=== PATIENT | female | born 2000 | race Hispanic/Latino ===

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

== ENCOUNTER 2024-12-08 12:08 | Emergency (ER) | payer BC ==
--- OUTSIDE RECORDS SUMMARY | 2024-12-08 12:13 | XMS REPORT | Continuity of Care Document ---
Author Name Unknown Address [address] [facility] [address] [place] [address] Organization [facility] Address [address] [facility] [address] [place] [address] Care Team Providers Care Psych Nurse Name Role Phone Pcp, Patient Does Not Have A Primary Care Physic chico Emili Tellez Attending Clinician Unavailab Araceli rOtega Attending Clinician Unavailable EAN WORKMAN Attending Clinician Unavaila Ean Ozuna Attending Clinician [phone]- [phone] KASSY VERDE Attending Clinician Unavailable DONIS BELTRÁN Attending Clinician Unavailable Doctor Unassigned, [place] Attending Clinician U THA Johnson Attending Clinician Unavaila THA Jolly Attending Clinician Unavaila RASHEEDA Gruber Attending Clinician Unavailable EbhiRasheeda Muñoz Attending Clinician [phone] Unknown, Attending Attending Clinician Unavailab JANICE Koenig Attending Clinician Unavailable Lab, Ang - Db Attending Clinician Unavailable Janice Blunt PA-C Attending Clinician [phone] UNKNOWN, ATTENDING Attending Clinician UnavailMARI Castro Attending Clinician Unavailable Mari Abbott MD Attending Clinician [phone] Araceli Up Admitting Clinician Unavailable Payers Payer Name Policy Type Policy Number Effective Date Expirati on Date Source [facility] - OUT [facility] STATE [id number] 2021 00:00:00 Problems Condition Name Condition Details Condition Category Status Onset Date Resolution Date Last Treatment Date Treating Clinician Comments Source Nexplanon in place Nexplanon in place Disease Active 12-07 00:00: 00 [facility] 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 Active 03-11 00:00: 00 [facility] Allergies, Adverse Reactions, Alerts Allergy Name Allergy Type Status Severity Reaction(s) Onset Date Inactive Date Treating Clinician Comments Source No Known Allergie s DA Active U 01-31 00:00: 00 [facility] No Known Allergie s DA Active U 01-28 00:00: 00 [facility] No Known Allergie s DA Active U 01-20 00:00: 00 [facility] No Known Allergie s DA Active U 12-06 00:00: 00 [facility] NO KNOWN ALLERGIE S Drug Class Active [facility] Social History Social Habit Start Date Stop Date Quantity Comments Source History SDOH Alcohol Comment Glidden o f [facility] Alcohol intake 2023-11-09 00:00:00 2023-11-09 00:00:00 Lifetime non-drinker (finding) [facility] Tobacco use and exposure 2023-02-24 00:00:00 2023-02-24 00:00:00 Smokeless tobacco non-user [facility] Exposure to SARS-CoV-2 (event) 2021-11-27 00:00:00 2021-12-07 13:58:00 Not sure [facility] History of Social function 2021-12-07 00:00:00 2021-12-07 00:00:00 [facility] History SDOH Alcohol Frequency 2020-08-28 00:00:00 2020-08-28 00:00:00 1 [facility] History SDOH Alcohol Std Drinks 2020-08-28 00:00:00 2020-08-28 00:00:00 99 [facility] History SDOH Alcohol Binge 2020-08-28 00:00:00 2020-08-28 00:00:00 1 [facility] Sex Assigned At 2000 00:00:00 2000 00:00:00 [facility] Smoking Status Start Date Stop Date Source Never smoked tobacco [facility] Medications Ordered Medication Name Filled Medication Name Start Date Stop Date Current Medication? Ordering Clinician Indication Dosage Frequency Signature (SIG) Comments Components Source nirmatrelvi r-ritonavir (PAXLOVID) 300 mg (150 mg x 2)-100 mg tablet 04-12 00:00: 00 Yes [id number] 3{tbl} Take 3 tablets by mouth in the morning and 3 tablets in the evening. [facility] etonogestre l (NEXPLANON) 68 mg implant 02-24 10:08: 36 02-24 00:00 :00 No 68mg 68 mg by Subdermal route once now. [facility] etonogestre l (NEXPLANON) 68 mg implant 08-28 13:18: 20 Yes 68mg 68 mg by Subdermal route once now. [facility] metformin ER 500 mg 24 hr tablet 2016-07 030 00:00: 00 02-24 00:00 :00 No 500mg Take 1 tablet by mouth daily with breakfast. [facility] Vital Signs Vital Name Observation Time Observation Value Comments S analyheriberto Heart rate 2023-11-10 02:15:00 96 /min [facility] Systolic blood pressure 2023-11-10 02:00:00 119 mm[Hg] [facility] Diastolic blood pressure 2023-11-10 02:00:00 75 mm[Hg] [facility] Body temperature 2023-11-10 02:00:00 36.83 Susan [facility] Respiratory rate 2023-11-10 02:00:00 17 /min [facility] Oxygen saturation in Arterial blood by Pulse oximetry 2023-11-10 02:00:00 99 /min [facility] Body height 2023-11-10 01:25:00 149.9 cm [facility] Body weight 2023-11-10 01:25:00 87.091 kg [facility] BMI 2023-11-10 01:25:00 38.78 kg/m2 [facility] Systolic blood pressure 2023-05-03 16:25:00 105 mm[Hg] [facility] Diastolic blood pressure 2023-05-03 16:25:00 68 mm[Hg] [facility] Heart rate 2023-05-03 16:24:00 76 /[facility] Body temperature 2023-05-03 16:24:00 36.78 Susan [facility] Body height 2023-05-03 16:24:00 149.9 cm [facility] Body weight 2023-05-03 16:24:00 77.52 kg [facility] BMI 2023-05-03 16:24:00 34.52 kg/m2 [facility] Systolic blood pressure 2023-04-12 14:23:00 113 mm[Hg] [facility] Diastolic blood pressure 2023-04-12 14:23:00 83 mm[Hg] [facility] Heart rate 2023-04-12 14:23:00 95 /min [facility] Body temperature 2023-04-12 14:23:00 36.83 Susan [facility] Respiratory rate 2023-04-12 14:23:00 18 /min [facility] Body height 2023-04-12 14:23:00 149.9 cm [facility] Body weight 2023-04-12 14:23:00 76.34 kg [facility] BMI 2023-04-12 14:23:00 33.99 kg/m2 [facility] Oxygen saturation in Arterial blood by Pulse oximetry 2023-04-12 14:23:00 98 /min [facility] Systolic blood pressure 2023-02-24 15:06:00 116 mm[Hg] [facility] Diastolic blood pressure 2023-02-24 15:06:00 81 mm[Hg] [facility] Heart rate 2023-02-24 15:06:00 81 /min [facility] Body temperature 2023-02-24 15:06:00 36.94 Susan [facility] Respiratory rate 2023-02-24 15:06:00 14 /min [facility] Body weight 2023-02-24 15:06:00 77.111 kg [facility] BMI 2023-02-24 15:06:00 34.34 kg/m2 [facility] Oxygen saturation in Arterial blood by Pulse oximetry 2023-02-24 15:06:00 100 /min [facility] Systolic blood pressure 2021-12-07 19:33:00 113 mm[Hg] [facility] Diastolic blood pressure 2021-12-07 19:33:00 74 mm[Hg] [facility] Heart rate 2021-12-07 19:33:00 88 /min [facility] Respiratory rate 2021-12-07 19:33:00 18 /min [facility] Body height 2021-12-07 19:33:00 149.9 cm [facility] Body weight 2021-12-07 19:33:00 71.243 kg [facility] BMI 2021-12-07 19:33:00 31.72 kg/m2 [facility] Oxygen saturation in Arterial blood by Pulse oximetry 2021-12-07 19:33:00 99 /min [facility] Procedures Procedure Date / Time Performed Performing Clinician Source [id number] 2024-02-09 00:00:00 [facility] [id number] 2024-02-09 00:00:00 [facility] [id number] 2024-02-09 00:00:00 [facility] [id number] 2024-02-09 00:00:00 [facility] EKG-12 LEAD 2023-11-10 02:34:29 Ean Workman [facility] TROPONIN I 2023-11-10 01:27:00 Ean Workman [facility] COMP. METABOLIC PANEL ([id number]) 2023-11-10 01:27:00 Juan [facility] CBC WITH DIFF 2023-11-10 01:27:00 Juan [facility] POCT SARS-COV-2 ANTIGEN (BINAX NOW) 2023-04-12 14:41:00 Janice Blunt [facility] POCT MOLECULAR STREP 2023-04-12 14:32:00 Unknown, Atte patrice [facility] POCT TEST 2023-02-24 15:08:00 Ky Blunt [facility] ASSIGNMENT OF BENEFITS 2023-02-24 14:51:53 Docto r Unassigned, [place] [facility] Encounters Start Date/Time End Date/Time Encounter Type Admission Type Attending [facility] Care Facility Care Department Encounter ID Source 2024-02-14 05:07:00 2024-02-14 15:05:00 Emergency EM [facility]elle[facility] [id number] [facility] 2024-02-08 23:47:00 2024-02-11 16:06:00 Inpatient Araceli Robles [facility] OBPP [id number] [facility] 2024-02-01 22:27:00 2024-02-01 23:50:00 Emergency EM Araceli Up [facility] MANJIT [id number] [facility] 2024-01-29 23:27:00 2024-01-30 00:46:00 Emergency EM Araceli Up [facility] [id number] [facility] 2024-01-21 08:15:00 2024-01-21 12:55:00 Emergency EM Araceli Up [facility] [id number] [facility] 2023-12-20 12:33:00 2023-12-20 12:33:00 Outpatient Araceli Robles [facility] [id number] [facility] 2023-12-07 14:20:00 2023-12-07 16:50:00 Emergency Araceli Hodges [facility]IT [id number] [facility] 2023-11-09 20:20:00 2023-11-09 22:15:00 Emergency X [facility] [id number] [facility] 2023-11-09 20:20:00 2023-11-09 22:15:00 Emergency Juan Ean [facility] [id number] 350.1.13.10 4.2.7.2.686 [id number] [facility] 2023-07-05 14:00:00 2023-07-05 14:00:00 Outpatient R KASSY VERDE [facility] [id number] [facility] 2023-06-28 09:00:00 2023-06-28 09:00:00 Outpatient R DONIS BELTRÁN [facility] [id number] [facility] 2023-05-13 00:00:00 2023-05-13 00:00:00 Patient Secure Msg Doctor Unassigned, [place] [facility] .840.114 350.1.13.10 4.2.7.2.686 [id number] [facility] 2023-05-03 11:30:00 2023-05-03 11:38:43 Outpatient R THA GONZALEZ CHERYAL [facility] [id number] [facility] 2023-05-03 11:30:00 2023-05-03 11:38:43 Office Visit Tha Gonzalez [facility] .840.114 350.1.13.10 4.2.7.2.686 [id number] [facility] 2023-04-12 09:20:00 2023-04-12 09:50:02 Outpatient R RASHEEDA ALVARADO [facility] [id number] [facility] 2023-04-12 09:20:00 2023-04-12 09:40:00 Urgent Care Juan RamonRasheeda cervantes Unknown, Attending [facility] [id number] 350.1.13.10 4.2.7.2.686 [id number] [facility] 2023-04-05 10:30:00 2023-04-05 10:30:00 Outpatient R THA GONZALEZ CHERYAL [facility] [id number] [facility] 2023-03-14 00:00:00 2023-03-14 00:00:00 Outpatient JANICE SABILLON [facility] [id number] [facility] 2023-02-27 00:00:00 2023-02-27 00:00:00 Patient Secure Msg Doctor Unassigned, [place] [facility] 1..840.114 350.1.13.10 4.2.7.2.686 [id number] [facility] 2023-02-24 10:45:00 2023-02-24 10:45:00 Save All [facility] 1.2.840.114 350.1.13.10 4.2.7.2.686 [id number] [facility] 2023-02-24 10:00:00 2023-02-24 10:26:05 Outpatient JANICE SABILLON [facility] [id number] [facility] 2023-02-24 10:00:00 2023-02-24 10:26:05 Urgent Care Janice Blunt Unknown, Attending [facility] [id number] 350.1.13.10 4.2.7.2.686 [id number] [facility] 2023-02-24 09:45:00 2023-02-24 09:45:00 Outpatient R UNKNOWN, ATTENDING [facility] [id number] [facility] 2023-02-24 00:00:00 2023-02-24 00:00:00 Orders Only Doctor Unassigned, [place] [facility] 1.840.114 350.1.13.10 4.2.7.2.686 [id number] [facility] 2022-12-20 10:00:00 2022-12-20 10:00:00 Outpatient R THA GONZALEZ CHERYAL [facility] [id number] [facility] 2021-12-28 15:15:00 2021-12-28 15:15:00 Outpatient R SCARGALLON [facility] [id number] [facility] 2021-12-21 00:00:00 2021-12-21 00:00:00 Telephone Scar Mari [facility] 1.2840.114 350.1.13.10 4.2.7.2.686 [id number] [facility] 2021-12-07 14:00:00 2021-12-07 14:55:37 Office Visit Mari Abbott [facility] [id number] 350.1.13.10 4.2.7.2.686 [id number] [facility] 2021-12-07 14:00:00 2021-12-07 14:55:37 Outpatient R GALLO ABBOTTN [facility] [id number] [facility] 2021-12-07 14:00:00 2021-12-07 14:00:00 Outpatient MARI MARIA [facility] [id number] [facility] 2021-08-31 14:00:00 2021-08-31 14:00:00 Outpatient MARI MARIA [facility] [id number] [facility] 2020-08-28 13:00:00 2020-08-28 13:00:00 Outpatient MARI MARIA [facility] [id number] [facility] 2020-08-28 00:00:00 2020-08-28 00:00:00 Orders Only Doctor Unassigned, [place] [facility] [id number] 350.1.13.10 4.2.7.2.686 [id number] [facility] Results Test Description Test Time Test Comments Results Result Co mments Source COMPREHENSIVE METABOLIC [id number] 06:28:00* Test Item Value Reference Range Interpretation Comme nts SODIUM (test code = NA) 139 mEq/L 136-145 N POTASSIUM (test code = K) 4.7 mEQ/L 3.4-4.5 H Please note new normal range as of November 2023 CHLORIDE (test code = CL) 110 mEq/L 98-107 H Please note new normal range as of November 2023 CARBON DIOXIDE (test code = CO2) 25 mEq/L 22-31 N ANION GAP (test code = GAP) 8.7 10-20 L GLUCOSE (test code = GLU) 81 mg/dL 74-106 N Please note new normal range as of November 2023 BLOOD UREA NITROGEN (test code = BUN) 8 mg/dL 8-23 N Please note ne w normal range as of November 2023 CREATININE (test code = CREAT) 0.6 mg/dL 0.55-1.02 N Please note new normal range as of November 2023 TOTAL PROTEIN (test code = PROT) 5.7 g/dL 5.7-8.2 N Please note new normal range as of November 2023 ALBUMIN (test code = ALB) 3.2 g/dL 3.2-4.8 N Please note new normal range as of November 2023 CALCIUM (test code = CA) 7.9 mg/dL 8.3-10.6 L Please note new normal range as of November 2023 BILIRUBIN TOTAL (test code = BILT) 0.2 mg/dL 0.3-1.2 L Please note n ew normal range as of November 2023 SGOT/AST (test code = AST) 39 units/L < 34 H SGPT/ALT (test code = ALT) 59 units/L 10-49 H ALKALINE PHOSPHATASE TOTAL (test code = ALKP) 152 units/L 46-116 H Please note n ew normal range as of November 2023 GLOMERULAR FILTRATION RATE (test code = GFR) 129.27 ml/min >60 N The Glomerular Filtration Rate is a calculated parameterbased on serum Creatinine, patient age and sex. GFR valuesless than 60 mL/min/1.73 square meters are indicative ofChronic Kidney Disease. Values less than 15 mL/min/1.73square meters indicate Kidney failure. The calculation forGFR is based on the CKD-EPI (2020) calculation. This formulais race indifferent and is the recommended formula for GFRby the National Kidney Foundation for Adults.The GFR will not calculate if the sex is unknown or if thepatient's age is <18 years. [id number] 06:28:00* Test Item Value Reference Range Interpretation Comme nts LIPASE (test code = LIP) 36 units/L 12-53 N Please note new normal range as of November 2023 CBC W/O [id number] 06:17:00* Test Item Value Reference Range Interpretation Comme nts WHITE BLOOD CELL (test code = WBC) 8.9 K/mm3 6.5-12.3 Results verified by repeat analysis RED BLOOD CELL (test code = RBC) 2.34 M/mm3 3.51-4.69 L HEMOGLOBIN (test code = HGB) 6.4 g/dL 10.1-13.8 LL RESULTS CALLED Zohreh ORTEGA RNREAD BACK & CONFIRMED? YESBY [id number] 02/14/24 0615Results verified by repeat analysis HEMATOCRIT (test code = HCT) 20.2 % 32.5-41.8 L MEAN CELL VOLUME (test code = MCV) 86.3 fL 84.6-96.6 N MEAN CELL HGB (test code = MCH) 27.4 pg 27.3-33.9 N MEAN CELL HGB CONCETRATION (test code = MCHC) 31.7 gm/dL 32.0-34.2 L RED CELL DISTRIBUTION WIDTH (test code = RDW) 15.9 % 12.2-16.3 N PLATELET COUNT (test code = PLT) 328 K/mm3 134-363 N MEAN PLATELET VOLUME (test code = MPV) 9.6 fL 9.2-12.7 N UA RFLX MICR CULT IF [id number] 05:38:00* Test Item Value Reference Range Interpretation Comme nts UA COLOR (test code = COLU) RED YELLOW UA APPEARANCE (test code = APPU) CLOUDY CLEAR A UA GLUCOSE DIPSTICK (test code = DGLUU) NEGATIVE NEGATIVE UA BILIRUBIN DIPSTICK (test code = BILU) NEGATIVE NEGATIVE UA KETONE DIPSTICK (test code = KETU) NEGATIVE NEGATIVE UA SPECIFIC GRAVITY (test code = SGU) 1.015 1.001-1.035 N UA BLOOD DIPSTICK (test code = JENNIFER) 3+ NEGATIVE A UA PH DIPSTICK (test code = KIMBERLY) 7.0 5-9 UA PROTEIN DIPSTICK (test code = PROU) 2+ NEGATIVE UA UROBILINIOGEN DIPSTICK (test code = URO) 0.2 EU/dL <=1.0 UA NITRITE DIPSTICK (test code = ALEJANDRA) NEGATIVE NEGATIVE UA LEUKOCYTE ESTERASE DIPSTICK (test code = LEUU) 3+ NEGATIVE A UA WBC (test code = WBCU) TOO NUMEROUS T O CNT #/hpf NONE SEEN A UA EPITHELIAL CELLS (test code = EPIU) FEW #/HPF RARE-FEW UA RBC (test code = RBCU) TOO NUMEROUS T O CNT #/hpf NONE SEEN A UA BACTERIA (test code = BACU) FEW /HPF RARE-FEW Indication for culture: Dysuria/FrequencySpecimen Description: CLEAN CATCH COMPREHENSIVE METABOLIC [id number] 09:11:00* Test Item Value Reference Range Interpretation Comme nts SODIUM (test code = NA) 139 mEq/L 136-145 N POTASSIUM (test code = K) 4.4 mEQ/L 3.4-4.5 N Please note new normal range as of November 2023 CHLORIDE (test code = CL) 112 mEq/L 98-107 H Please note new normal range as of November 2023 CARBON DIOXIDE (test code = CO2) 22 mEq/L 22-31 N ANION GAP (test code = GAP) 9.4 10-20 L GLUCOSE (test code = GLU) 91 mg/dL 74-106 N Please note new normal range as of November 2023 BLOOD UREA NITROGEN (test code = BUN) 7 mg/dL 8-23 L Please note ne w normal range as of November 2023 GLOMERULAR FILTRATION RATE (test code = GFR) 124.55 ml/min >60 N The Glomerular Filtration Rate is a calculated parameterbased on serum Creatinine, patient age and sex. GFR valuesless than 60 mL/min/1.73 square meters are indicative ofChronic Kidney Disease. Values less than 15 mL/min/1.73square meters indicate Kidney failure. The calculation forGFR is based on the CKD-EPI (2020) calculation. This formulais race indifferent and is the recommended formula for GFRby the National Kidney Foundation for Adults.The GFR will not calculate if the sex is unknown or if thepatient's age is <18 years. CREATININE (test code = CREAT) 0.7 mg/dL 0.55-1.02 N Please note new normal range as of November 2023 TOTAL PROTEIN (test code = PROT) 5.5 g/dL 5.7-8.2 L Please note new normal range as of November 2023 ALBUMIN (test code = ALB) 3.0 g/dL 3.2-4.8 L Please note new normal range as of November 2023 CALCIUM (test code = CA) 8.5 mg/dL 8.3-10.6 N Please note new normal range as of November 2023 BILIRUBIN TOTAL (test code = BILT) 0.3 mg/dL 0.3-1.2 N Please note n ew normal range as of November 2023 SGOT/AST (test code = AST) 33 units/L < 34 SGPT/ALT (test code = ALT) 48 units/L 10-49 N ALKALINE PHOSPHATASE TOTAL (test code = ALKP) 199 units/L 46-116 H Please note n ew normal range as of November 2023 CBC W/AUTO [id number] 08:32:00* Test Item Value Reference Range Interpretation Comme nts WHITE BLOOD CELL (test code = WBC) 18.1 K/mm3 6.5-12.3 H Results verifi ed by repeat analysisRESULTS VERIFIED BY REPEAT ANALYSIS RED BLOOD CELL (test code = RBC) 2.83 M/mm3 3.51-4.69 L HEMOGLOBIN (test code = HGB) 7.6 g/dL 10.1-13.8 L HEMATOCRIT (test code = HCT) 24.1 % 32.5-41.8 L MEAN CELL VOLUME (test code = MCV) 85.2 fL 84.6-96.6 N MEAN CELL HGB (test code = MCH) 26.9 pg 27.3-33.9 L MEAN CELL HGB CONCETRATION (test code = MCHC) 31.5 gm/dL 32.0-34.2 L RED CELL DISTRIBUTION WIDTH (test code = RDW) 14.8 % 12.2-16.3 N PLATELET COUNT (test code = PLT) 311 K/mm3 134-363 N IMMATURE PLATELET FRACTION (test code = IPF) 2.3 % 0.0-10.8 N MEAN PLATELET VOLUME (test code = MPV) 11.1 fL 9.2-12.7 N NEUTROPHIL % (test code = NT%) 82.9 % 57.9-77.3 H LYMPHOCYTE % (test code = LY%) 11.1 % 14.5-29.7 L MONOCYTE % (test code = MO%) 4.8 % 3.6-10.2 N EOSINOPHIL % (test code = EO%) 0.4 % 0.0-3.0 N BASOPHIL % (test code = BA%) 0.2 % 0.1-0.9 N NEUTROPHIL # (test code = NT#) 15.0 K/mm3 LYMPHOCYTE # (test code = LY#) 2.0 K/mm3 MONOCYTE # (test code = MO#) 0.9 K/mm3 EOSINOPHIL # (test code = EO#) 0.07 K/mm3 BASOPHIL # (test code = BA#) 0.0 K/mm3 RBC MORPHOLOGY REQUIRED (test code = RBCM) NORMAL NORMAL PLATELET MORPHOLOGY REQUIRED (test code = PLTMR) NORMAL NORMAL COMPREHENSIVE METABOLIC [id number] 10:25:00* Test Item Value Reference Range Interpretation Comme nts SODIUM (test code = NA) 136 mEq/L 136-145 N POTASSIUM (test code = K) 4.2 mEQ/L 3.4-4.5 N Please note new normal range as of November 2023 CHLORIDE (test code = CL) 111 mEq/L 98-107 H Please note new normal range as of November 2023 CARBON DIOXIDE (test code = CO2) 19 mEq/L 22-31 L ANION GAP (test code = GAP) 10.2 10-20 N GLUCOSE (test code = GLU) 130 mg/dL 74-106 H Please note new normal range as of November 2023 BLOOD UREA NITROGEN (test code = BUN) 10 mg/dL 8-23 N Please note ne w normal range as of November 2023 CREATININE (test code = CREAT) 0.9 mg/dL 0.55-1.02 N Please note new normal range as of November 2023 TOTAL PROTEIN (test code = PROT) 4.8 g/dL 5.7-8.2 L Please note new normal range as of November 2023 ALBUMIN (test code = ALB) 2.7 g/dL 3.2-4.8 L Please note new normal range as of November 2023 CALCIUM (test code = CA) 8.2 mg/dL 8.3-10.6 L Please note new normal range as of November 2023 BILIRUBIN TOTAL (test code = BILT) 0.4 mg/dL 0.3-1.2 N Please note n ew normal range as of November 2023 SGOT/AST (test code = AST) 51 units/L < 34 H SGPT/ALT (test code = ALT) 69 units/L 10-49 H ALKALINE PHOSPHATASE TOTAL (test code = ALKP) 194 units/L 46-116 H Please note n ew normal range as of November 2023 GLOMERULAR FILTRATION RATE (test code = GFR) 92.12 ml/min >60 N The Glomerular Filtration Rate is a calculated parameterbased on serum Creatinine, patient age and sex. GFR valuesless than 60 mL/min/1.73 square meters are indicative ofChronic Kidney Disease. Values less than 15 mL/min/1.73square meters indicate Kidney failure. The calculation forGFR is based on the CKD-EPI (2020) calculation. This formulais race indifferent and is the recommended formula for GFRby the National Kidney Foundation for Adults.The GFR will not calculate if the sex is unknown or if thepatient's age is <18 years. CBC W/AUTO [id number] 09:21:00* Test Item Value Reference Range Interpretation Comme nts WHITE BLOOD CELL (test code = WBC) 19.5 K/mm3 6.5-12.3 H Results verified by repeat analysis RED BLOOD CELL (test code = RBC) 2.67 M/mm3 3.51-4.69 L HEMOGLOBIN (test code = HGB) 7.1 g/dL 10.1-13.8 L Results verified by repeat analysis HEMATOCRIT (test code = HCT) 22.0 % 32.5-41.8 L Results verified by repeat analysis MEAN CELL VOLUME (test code = MCV) 82.4 fL 84.6-96.6 L MEAN CELL HGB (test code = MCH) 26.6 pg 27.3-33.9 L MEAN CELL HGB CONCETRATION (test code = MCHC) 32.3 gm/dL 32.0-34.2 N RED CELL DISTRIBUTION WIDTH (test code = RDW) 14.4 % 12.2-16.3 N PLATELET COUNT (test code = PLT) 241 K/mm3 134-363 N MEAN PLATELET VOLUME (test code = MPV) 10.3 fL 9.2-12.7 N NEUTROPHIL % (test code = NT%) 84.9 % 57.9-77.3 H LYMPHOCYTE % (test code = LY%) 7.6 % 14.5-29.7 L MONOCYTE % (test code = MO%) 6.5 % 3.6-10.2 N EOSINOPHIL % (test code = EO%) 0.0 % 0.0-3.0 N BASOPHIL % (test code = BA%) 0.2 % 0.1-0.9 N NEUTROPHIL # (test code = NT#) 16.5 K/mm3 LYMPHOCYTE # (test code = LY#) 1.5 K/mm3 MONOCYTE # (test code = MO#) 1.3 K/mm3 EOSINOPHIL # (test code = EO#) 0 K/mm3 BASOPHIL # (test code = BA#) 0.0 K/mm3 [id number] 20:26:00* Test Item Value Reference Range Interpretation Comme nts GLUBED (test code = GLUBED) 96 mg/dL 65-110 N [id number] 18:25:00* Test Item Value Reference Range Interpretation Comme nts GLUBED (test code = GLUBED) 68 mg/dL 65-110 N [id number] 14:00:00* Test Item Value Reference Range Interpretation Comme nts GLUBED (test code = GLUBED) 72 mg/dL 65-110 N [id number] 08:54:00* Test Item Value Reference Range Interpretation Comme nts GLUBED (test code = GLUBED) 78 mg/dL 65-110 N AG HEPATITIS B [id number] 04:58:00* Test Item Value Reference Range Interpretation Comme nts AG HEPATITIS B SURFACE (test code = HBSAG) NONREACTIVE NONREACTIVE AB HEPATITIS C [id number] 04:58:00* Test Item Value Reference Range Interpretation Comme nts AB HEPATITIS C (test code = HCVAB) NONREACTIVE NONREACTIVE SIGNAL TO CUTOFF (test code = CUTOFF) <0.02 <0.80 N AB [id number] 04:58:00* Test Item Value Reference Range Interpretation Comme nts AB TREPONEMA (test code = TREPAB) NONREACTIVE NONREACTIVE AB HIV 1 04:58:00* Test Item Value Reference Range Interpretation Comme nts AB HIV 1 2 (test code = DBC27YU) NONREACTIVE NONREACTIVE Done by [employer] HIV Ag/Ab Combo Screen [id number] 03:36:00* Test Item Value Reference Range Interpretation Comme nts GLUCOSE (test code = GLU) 80 mg/dL 74-106 N Please note new normal range as of November 2023 CBC W/AUTO [id number] 02:34:00* Test Item Value Reference Range Interpretation Comme nts WHITE BLOOD CELL (test code = WBC) 8.6 K/mm3 6.5-12.3 N RED BLOOD CELL (test code = RBC) 3.62 M/mm3 3.51-4.69 N HEMOGLOBIN (test code = HGB) 9.7 g/dL 10.1-13.8 L HEMATOCRIT (test code = HCT) 30.1 % 32.5-41.8 L MEAN CELL VOLUME (test code = MCV) 83.1 fL 84.6-96.6 L MEAN CELL HGB (test code = MCH) 26.8 pg 27.3-33.9 L MEAN CELL HGB CONCETRATION ( test code = MCHC) 32.2 gm/dL 32.0-34.2 N RED CELL DISTRIBUTION WIDTH (test code = RDW) 13.8 % 12.2-16.3 N PLATELET COUNT (test code = PLT) 330 K/mm3 134-363 N MEAN PLATELET VOLUME (test c ode = MPV) 10.6 fL 9.2-12.7 N NEUTROPHIL % (test code = NT%) 69.8 % 57.9-77.3 N LYMPHOCYTE % (test code = LY%) 23.3 % 14.5-29.7 N MONOCYTE % (test code = MO%) 6.0 % 3.6-10.2 N EOSINOPHIL % (test code = EO%) 0.3 % 0.0-3.0 N BASOPHIL % (test code = BA%) 0.3 % 0.1-0.9 N NEUTROPHIL # (test code = NT#) 6.0 K/mm3 LYMPHOCYTE # (test code = LY#) 2.0 K/mm3 MONOCYTE # (test code = MO#) 0.5 K/mm3 EOSINOPHIL # (test code = EO#) 0.03 K/mm3 BASOPHIL # (test code = BA#) 0.0 K/mm3 - US FET BIO PH MO W/O [id number] 23:53:00 [facility] [place] [facility] KAUFMANName: ISAÍAS MELISSA : 2000 Sex: FPatient Name: ISAÍAS MELISSA Unit No: [id number] EXAMS: CPT CODE: [id number] US FET BIO PH MO W/O NST 30189 BIOPHYSICAL PROFILE: CLINICAL HISTORY: Decreased movement TECHNIQUE: Real-time transabdominal OB ultrasound with image documentation. PRESENTATION: Cephalic PLACENTA: Anterior, grade 2CERVICAL LENGTH: Not visualized. HR: 154 BPM ARMAAN: 10.9 cm GRADING: BREATHIN MOTION:2 TONE: 2 AMNIOTIC FLUID: 2 TOTAL: 8/8 at 2353 Reported and signed by: Estuardo Bullard MD CC: Araceli Up MD; Linda Corrales MD Technologist: Carly Coffman RDMS Probe: Trnscrbd D/ (3983) [email or web address] Orig Print D/T: S: 02/01/2024 (5450) [facility] NAME: ISAÍAS MELISSA Radiology Department PHYS: Linda Mccracken MD [address] : 2000 AGE: 23 SEX: F [place] [address] LOC: F.MANJIT PHONE #: [phone] EXAM DATE: 02/01/2024 STATUS: REG ER FAX #: [phone] RAD NO: Page 1 Signed Report Patient Name: ISAÍAS MELISSA Unit No: [id number] EXAMS: CPT CODE: [id number] US FET BIO PH MO W/O NST 91429 (Continued) [facility] NAME: ISAÍAS MELISSA Radiology Department PHYS: Linda Mccracken MD [address] : 2000 AGE: 23SEX: F [place] [address] LOC: F.MANJIT PHONE #: [phone] EXAM DATE: 01/31 STATUS: REG ER FAX #: [phone] RAD NO: Page 2 Signed Report- US [id number] 00:51:00 [facility] : 2000 Sex: FPatient Name: ISAÍAS MELISSA Unit No: [id number] EXAMS: CPT CODE: [id number] [place] L[place] [address]346 EXAM: US PELVIS OBSTETRIC LIMITED DATE: 01/30/2024 11:52 PM INDICATION: LOF, NEED ARMAAN COMPARISON: None FINDINGS: Uterus: Single intrauterine Lower uterine segment/cervix: Normal with a cervical length of 3 cm Placenta location: Anterior. No evidence for placenta previa or placenta abruption Amniotic fluid volume: Appropriate with ARMAAN = 12 cm position: Cephalic. heart rate: 163 beats per minute Estimated gestational age (US): 35 weeks 4 days SHEELA: 02/29/2024 IMPRESSION: Viable single intrauterine as detailed above. This examination does not include a complete evaluation. If a evaluation is clinically indicated, and complete OB ultrasound exam is recommended on an elective basis. at 0051 Reported and signed by: Jossue Reed M.D. CC: Araceli Up MD; Hao Barahona MD Technologist: Tiff Francisco RDMS Probe: Trnscrbd D/ (005) [email or web address] Orig Print D/T: S: 01/30/2024 (005) [facility] NAME: ISAÍAS MELISSA Radiology Department PHYS: MYLA.Hao Mccormick [address] : 2000 AGE: 23 SEX: F [place], [place] [address] LOC: JordyMANJIT PHONE #: [phone] EXAM DATE: 01/30/2024 STATUS: REG ER FAX #: [phone] RAD NO: Page 1 Signed Report Patient Name: ISAÍAS MELISSA Unit No: [id number] EXAMS: CPT CODE: [id number] [place] L[place] [address]80 (Continued) [facility] NAME: ISAÍAS MELISSA Radiology Department PHYS: Hao Cabrera [address] : 2000AGE: 23 SEX: F [place], [place] [address] LOC: JordyMANJIT PHONE #: [phone] EXAM DATE: 01/30/2024 STATUS: REG ER FAX #: [phone] RAD NO: Page 2 Signed Report- US ABDOMEN [id number] 10:59:00 [facility] : 2000 Sex: FPatient Name: ISAÍAS MELISSA Unit No: [id number] EXAMS: CPT CODE: [id number] US ABDOMEN LTD 36106TNQV: US ABDOMEN LIMITED DATE: 01/21/2024 9:07 AM INDICATION: Epigastric pain, nausea, rule out gallstones ADDITIONAL INFORMATION: None. COMPARISON: None. TECHNIQUE: Multiplanar grayscale and color Doppler ultrasound of the right upper quadrant. Patient unable to fully cooperate for examination. FINDINGS: Liver: Craniocaudal length: 15.3 cm. Echogenicity: Normal. Surface: Normal. Mass (size and location): None. Main portal vein: . Flow: Hepatopetal. Bile ducts: Common bile duct diameter: 0.4 cm. Intrahepatic ducts: Normal. Gallbladder: 9.5 cm in length Gallstones: Multiple mobile gallstones. Gallbladder sludge: None. Gallbladder wall: 0.3 cm. Polyps/masses: None. Pericholecystic fluid: None. S onographic Whaley sign: Absent. Pancreas: Obscured by bowel gas. Aorta: The aorta is normal where visualized, measuring up to 1.5 cm in diameter. IVC: Evaluation limited due to obscuration by bowel gas. Right kidney: Size: 10.6 x 4.8 x 5.1 cm Cortical thickness: Normal. Hydronephrosis: None. Echogenicity: Normal. Calculi: None. Cysts/Masses: None. Free fluid: None. Other: None. [facility] NAME: ISAÍAS MELISSA Radiology Department PHYS: FARMLAND JoKrystle rico [address] : 2000 AGE: 23 SEX: F [place] [address] LOC: Elayne.MANJIT PHONE #: [phone] EXAM DATE: 01/21/2024 STATUS: REG ER FAX #: [phone] RAD NO: Page 1 Signed Report (CONTINUED) Patient Name: ISAÍAS MELISSA Unit No: [id number] EXAMS: CPT CODE: [id number] US ABDOMENLTD 98920 (Continued) IMPRESSION: Cholelithiasis without evidence of cholecystitis. at 1059 Reported and signed by: Prince Wilson MD CC: Araceli Up MD; Krystle Montoya MD Technologist: Ray Ahmadi RDMS Probe: Trnscrbd D/ (1059) [email or web address] Orig Print D/T: S: 01/21/2024 (1102) [facility] NAME: ISAÍAS MELISSA Radiology Department PHYS: FARMLAND JoKrystle rico [address] : 2000 AGE: 23 SEX: F [place] [address] LOC: Elayne.MANJIT PHONE #: [phone] EXAM DATE: 01/21/2024 STATUS: REG ER FAX #: [phone] RAD NO: Page 2 Signed Report Patient Name: ISAÍAS MELISSA Unit No: [id number] EXAMS: CPT CODE: [id number] US ABDOMEN LTD 31619 (Continued) [facility] NAME: ISAÍAS MELISSA Radiology Department PHYS: Krystle Collazo [address] : 2000 AGE: 23 SEX: F [place], [place] [address] LOC: JordyMANJIT PHONE#: [phone] EXAM DATE: 01/21/2024 STATUS: REG ER FAX #: [phone] RAD NO: Page 3 Signed ReportCOMPREHENSIVE METABOLIC [id number] 10:45:00* Test Item Value Reference Range Interpretation Comme nts SODIUM (test code = NA) 135 mEq/L 136-145 L POTASSIUM (test code = K) 4.8 mEQ/L 3.4-4.5 H Please note new normal range as of November 2023 CHLORIDE (test code = CL) 107 mEq/L 98-107 N Please note new normal range as of November 2023 CARBON DIOXIDE (test code = CO2) 22 mEq/L 22-31 N ANION GAP (test code = GAP) 10.8 10-20 N GLUCOSE (test code = GLU) 114 mg/dL 74-106 H Please note new normal range as of November 2023 BLOOD UREA NITROGEN (test code = BUN) 8 mg/dL 8-23 N Please note ne w normal range as of November 2023 GLOMERULAR FILTRATION RATE (test code = GFR) 129.27 ml/min >60 N The Glomerular Filtration Rate is a calculated parameterbased on serum Creatinine, patient age and sex. GFR valuesless than 60 mL/min/1.73 square meters are indicative ofChronic Kidney Disease. Values less than 15 mL/min/1.73square meters indicate Kidney failure. The calculation forGFR is based on the CKD-EPI (2020) calculation. This formulais race indifferent and is the recommended formula for GFRby the National Kidney Foundation for Adults.The GFR will not calculate if the sex is unknown or if thepatient's age is <18 years. CREATININE (test code = CREAT) 0.6 mg/dL 0.55-1.02 N Please note new normal range as of November 2023 TOTAL PROTEIN (test code = PROT) 6.1 g/dL 5.7-8.2 N Please note new normal range as of November 2023 ALBUMIN (test code = ALB) 3.7 g/dL 3.2-4.8 N Please note new normal range as of November 2023 CALCIUM (test code = CA) 9.3 mg/dL 8.3-10.6 N Please note new normal range as of November 2023 BILIRUBIN TOTAL (test code = BILT) 0.7 mg/dL 0.3-1.2 N Please note n ew normal range as of November 2023 SGOT/AST (test code = AST) 79 units/L < 34 H SGPT/ALT (test code = ALT) 71 units/L 10-49 H ALKALINE PHOSPHATASE TOTAL (test code = ALKP) 206 units/L 46-116 H Please note n ew normal range as of November 2023 CBC W/AUTO [id number] 09:30:00* Test Item Value Reference Range Interpretation Comme nts WHITE BLOOD CELL (test code = WBC) 11.9 K/mm3 6.5-12.3 N RED BLOOD CELL (test code = RBC) 4.18 M/mm3 3.51-4.69 N HEMOGLOBIN (test code = HGB) 11.5 g/dL 10.1-13.8 N HEMATOCRIT (test code = HCT) 36.0 % 32.5-41.8 N MEAN CELL VOLUME (test code = MCV) 86.1 fL 84.6-96.6 N MEAN CELL HGB (test code = MCH) 27.5 pg 27.3-33.9 N MEAN CELL HGB CONCETRATION ( test code = MCHC) 31.9 gm/dL 32.0-34.2 L RED CELL DISTRIBUTION WIDTH (test code = RDW) 13.2 % 12.2-16.3 N PLATELET COUNT (test code = PLT) 392 K/mm3 134-363 H MEAN PLATELET VOLUME (test c ode = MPV) 9.8 fL 9.2-12.7 N NEUTROPHIL % (test code = NT%) 75.4 % 57.9-77.3 N LYMPHOCYTE % (test code = LY%) 19.1 % 14.5-29.7 N MONOCYTE % (test code = MO%) 4.7 % 3.6-10.2 N EOSINOPHIL % (test code = EO%) 0.1 % 0.0-3.0 N BASOPHIL % (test code = BA%) 0.2 % 0.1-0.9 N NEUTROPHIL # (test code = NT#) 9.0 K/mm3 LYMPHOCYTE # (test code = LY#) 2.3 K/mm3 MONOCYTE # (test code = MO#) 0.6 K/mm3 EOSINOPHIL # (test code = EO#) 0.01 K/mm3 BASOPHIL # (test code = BA#) 0.0 K/mm3 URINALYSIS [id number] 15:46:00* Test Item Value Reference Range Interpretation Comme nts UA COLOR (test code = COLU) YELLOW YELLOW UA APPEARANCE (test code = APPU) Slightly-Cloudy CLEAR UA GLUCOSE DIPSTICK (test code = DGLUU) 1+ NEG A UA BILIRUBIN DIPSTICK (test code = BILU) NEGATIVE NEG UA KETONE DIPSTICK (test cod e = KETU) 2+ NEG A UA SPECIFIC GRAVITY (test code = SGU) 1.021 1.001-1.035 N UA BLOOD DIPSTICK (test code = JENNIFER) NEG NEG UA PH DIPSTICK (test code = KIMBERLY) 5.0 5-9 UA PROTEIN DIPSTICK (test code = PROU) 1+ NEG A UA UROBILINIOGEN DIPSTICK (test code = URO) NEGATIVE mg/dL NEG UA NITRITE DIPSTICK (test code = ALEJANDRA) NEG NEG UA LEUKOCYTE ESTERASE DIPSTICK (test code = LEUU) NEG NEG UA WBC (test code = WBCU) 6-10 #/hpf NONE SEEN A UA RBC (test code = RBCU) 0-2 #/hpf NONE SEEN UA EPITHELIAL CELLS (test code = EPIU) MODERATE #/HPF RARE-FEW A UA MUCUS (test code = MUCU) RARE NONE SEEN URINE SAMPLE: CLEAN CATCHTROPONIN [id number] 02:08:05* Test Item Value Reference Range Interpretation Comme nts TROPONIN I (test code = 9161274742) 0.001 ng/mL <=0.034 KENDALL (test code = KENDALL) Reference (Normal) Range (defined by the 99th percentile reference limit): <= 0.034 ng/mL Note: Cardiac troponin begins to rise 3-4 hours after the onset of ischemia. Repeat in 4-6 hours if the sample was drawn within 3-4 hours of the onset of the symptom and found normal. Diagnosis of myocardial injury is made with acute changes in cTn concentrations with at least one serial sample above the 99th percentile upper reference limit (URL), taken together with the patient's clinical presentation. Biotin has been reported to cause a negative bias, interpret results relative to patient's use of biotin. Lab Interpretation (test code = 99378-4) Normal [facility]. METABOLIC PANEL (05466)2023-11-10 02:04:02* Test Item Value Reference Range Interpretation Comme nts NA (test code = 7891862538) 134 mmol/L 135-145 L K (test code = 1521968582) 3.7 mmol/L 3.5-5.0 CL (test code = 3622322137) 103 mmol/L 98-108 CO2 TOTAL (test code = 9944513518) 24 mmol/L 23-31 AGAP (test code = 8476046636) 7 2-16 BUN (test code = 9986996280) 8 mg/dL 7-23 GLUCOSE (test code = 3452640362) 99 mg/dL 70-110 CREATININE (test code = 2160-0) 0.44 mg/dL 0.50-1.04 L TOTAL BILI (test code = 0251174329) 0.3 mg/dL 0.1-1.1 CALCIUM (test code = 1437446359) 8.8 mg/dL 8.6-10.6 T PROTEIN (test code = 0093705325) 6.9 g/dL 6.3-8.2 ALBUMIN (test code = 5722866866) 3.6 g/dL 3.5-5.0 ALK PHOS (test code = 1639940870) 96 U/L 34-122 ALTv (test code = 1742-6) 49 U/L 5-35 H AST(SGOT) (test code = 7558712248) 35 U/L 13-40 eGFR (test code = 86707-9) 139.6 mL/min/1.73m2 CKD-EPI eGFR (2020). Assuming creatinine has been stable day-to-day for at least three months, the eGFR indicates Category G1 (>= 90 mL/min/1.73 m2) Lab Interpretation (test code = 28747-5) Abnormal [facility] WITH [id number] 01:52:04* Test Item Value Reference Range Interpretation Comme nts WBC (test code = 6690-2) 13.28 4.30-11.10 H RBC (test code = 789-8) 3.74 3.93-5.25 L HGB (test code = 718-7) 11.8 g/dL 11.6-15.0 HCT (test code = 4544-3) 34.6 % 35.7-45.2 L MCV (test code = 787-2) 92.5 fL 80.6-95.5 MCH (test code = 785-6) 31.6 pg 25.9-32.8 MCHC (test code = 786-4) 34.1 g/dL 31.6-35.1 RDW-SD (test code = 84022-9) 40.9 fL 39.0-49.9 RDW-CV (test code = 788-0) 12.2 % 12.0-15.5 PLT (test code = 777-3) 367 166-358 H MPV (test code = 48624-9) 9.3 fL 9.5-12.9 L NRBC/100 WBC (test code = 1070175750) 0.0 0.0-10.0 NRBC x10^3 (test code = 3018173130) See_Comment [Automated messa ge] The system which generated this result transmitted reference range: 10*3/?L. The reference range was not used to interpret this result as normal/abnormal. GRAN MAT (NEUT) % (test code = 770-8) 67.8 % IMM GRAN % (test code = 5637418228) 1.00 % LYMPH % (test code = 736-9) 24.1 % MONO % (test code = 5905-5) 6.2 % EOS % (test code = 713-8) 0.7 % BASO % (test code = 706-2) 0.2 % GRAN MAT x10^3(ANC) (test code = 3668433474) 9.01 10*3/uL 1.88-7.09 H IMM GRAN x10^3 (test code = 4735340466) 0.13 10*3/uL 0.00-0.06 H LYMPH x10^3 (test code = 731-0) 3.20 10*3/uL 1.32-3.29 MONO x10^3 (test code = 742-7) 0.82 10*3/uL 0.33-0.92 EOS x10^3 (test code = 711-2) 0.09 10*3/uL 0.03-0.39 BASO x10^3 (test code = 704-7) 0.03 10*3/uL 0.01-0.07 Lab Interpretation (test code = 12286-3) Abnormal [facility] SARS-COV-2 ANTIGEN (BINAX NOW)2023-04-12 14:41:00* Test Item Value Reference Range Interpretation Comme nts POCT SARS-COV-2 ANTIGEN (tigre t code = 02454-0) Positive Not Detected A On board controls acceptable with C Line (test code = 3574) Yes Lab Interpretation (test cod e = 12866-2) Abnormal [facility] MOLECULAR [id number] 14:40:05* Test Item Value Reference Range Interpretation Comme nts POCT Molecular Strep (test c ode = 36552-8) Negative Negative Lab Interpretation (test cod e = 83672-2) Normal [facility] [id number] 15:11:00* Test Item Value Reference Range Interpretation Comme nts POCT PREG (test code = 1605) Negative On board controls acceptable with C Line (test code = 3574) Yes POCT PREG LOT # (test code = 3575) POCT PREG TEST DATE ( test code = 3576) Lab Interpretation (test cod e = 98985-1) Normal [facility] Notes Date/Time Note Provider Source 2024-02-14 06:49:[address] [facility] ([facility] EMERGENCY PROVIDER REPORT REPORT#:[id number] REPORT STATUS: Signed DATE:02/14/24 TIME: 648 PATIENT: ISAÍAS MELISSA UNIT #: [id number] ROOM/BED: AGE: 23 SEX: F PCP PHYS: Araceli Up MD SERVICE AUTHOR: Emili Tellez DO * ALL edits or amendments must be made on the electronic/computer document * HPI-General Illness General Initial Greet Date/Time 02/14/24 0516 PCP OB- Dr. Clarice Up Presentation Chief Complaint Fatigue, chills Reason for ED Visit (v.PCP/UC) Fatigue, chills Free Text HPI Notes Free Text HPI Notes The patient is a 23-year-old female who is currently 5 days who is presenting with generalized fatigue and chills. Of note, her delivery was complicated by shoulder dystocia with a 3rd degree laceration and hemorrhage. Her estimated blood loss at delivery was 710 cc. The patient developed chills and generalized shaking 2 days ago. Her systolic blood pressure was 157 and her heart rate was 130. [facility] and she received a CT abd/pelvis with contrast and a pelvic ultrasound. Her CT showed small bilateral pleural effusions and an enlarged uterus. Her hemoglobin was 7.1. Review of Systems ROS Statements All systems rev neg except as marked. Past Medical History - Adult Stated Complaint 5 DAYS POST , ANEMIA Allergies Coded Allergies: No Known Allergies (02/01/24) Home Medications Discontinued Scripts IBUPROFEN (MOTRIN) 600 MG PO Q6H PRN PRN PAIN 30 Days #30 TAB Prov: 02/11/24 DC: 02/14/24 0523 Therapy completed DOCUSATE SODIUM (COLACE) 100 MG PO Q12HR PRN constipation 30 Days #30 CAP Prov: 02/11/24 DC: 02/14/24 0523 Therapy completed Reported Medications No Known Home Medications Discontinued Reported Medications PNV WITH FE FUMARATE/FA () 1 TAB PO DAILY INSULIN LISPRO (HumaLOG CARTRIDGE (15mL)) 6 UNITS SUBQ BID Additional Medical History Gestational DM, Cholelithiasis Past Surgical History: Denies: Abdominal surgery. Alcohol Use Denies EtOH use Drug Use Denies recreational drugs Smoking status for patients 13 years old or older: Never Smoker Physical Exam Vital Signs Vital Signs First Documented: Result Date Time Pulse Ox 98 02/13 0510 B/P 137/88 02/13 0510 B/P Mean 104 02/13 0510 O2 Delivery Room air 02/13 0510 Temp 98.1 02/13 0510 Pulse 106 02/13 0510 Resp 18 02/13 0510 Last Documented: Result Date Time Pulse Ox 98 02/13 1435 B/P 146/68 02/13 1435 B/P Mean 94 02/13 1435 Temp 98.6 02/13 1435 Pulse 96 02/13 1435 Resp 18 02/13 1435 O2 Delivery Room air 02/13 0510 Review of Vital Signs Reviewed Free Text PE Notes Free Text PE Notes Free Text PE Notes Physical Exam General/Const General/Const Awake, Alert, No acute distress, Well appearing MS Head Head Atraumatic, Normocephalic Eyes Eyes Atraumatic, No scleral icterus Ears/Nose/Throat Ears/Nose/Throat Atraumatic, Airway patent, Mucous membranes moist, Pharynx NL MS Neck Neck Atraumatic, Supple, No meningismus, Full range of motion Resp/Chest Respiratory/Chest Atraumatic, Breath sounds NL, Breath sounds = bilat, No respiratory distress Cardiovascular Cardiovascular Heart rate NL, Regular rhythm, Heart sounds NL, No gallop, No murmurs Abdomen/GI Abdomen/GI Atraumatic, Soft, Non-tender, McBurney's non-tender, No guarding MS Back Back Atraumatic, No muscle spasm MS Upper Extrem Upper Extremity/MS Atraumatic, Inspection NL, No swelling MS Lower Extrem Lower Ext/Pelvis/MS Atraumatic, Inspection NL, No swelling, Non-tender Skin Skin Atraumatic, Color NL, No rash, Warm Neurologic Neurologic Oriented X3, Speech NL, No motor deficits, No sensory deficits Interpretation Diagnostics Lab Results Interpretation Results Laboratory Tests 02/14/24 1341: [Embedded Image Not Available] 02/14/24 0532: [Embedded Image Not Available] Laboratory Tests: 02/13 02/13 1341 0532 Chemistry Sodium (136 - 145 mEq/L) 139 Potassium (3.4 - 4.5 mEQ/L) 4.7 H Chloride (98 - 107 mEq/L) 110 H Carbon Dioxide (22 - 31 mEq/L) 25 Anion Gap (10 - 20) 8.7 L BUN (8 - 23 mg/dL) 8 Creatinine (0.55 - 1.02 mg/dL) 0.6 Glomerular Filtr Rate (>60 ml/min) 129.27 Glucose (74 - 106 mg/dL) 81 Calcium (8.3 - 10.6 mg/dL) 7.9 L Total Bilirubin (0.3 - 1.2 mg/dL) 0.2 L AST (< 34 units/L) 39 H ALT (10 - 49 units/L) 59 H Total Alk Phosphatase (46 - 116 units/L) 152 H Total Protein (5.7 - 8.2 g/dL) 5.7 Albumin (3.2 - 4.8 g/dL) 3.2 Lipase (12 - 53 units/L) 36 Hematology WBC (6.5 - 12.3 K/mm3) 8.9 RBC (3.51 - 4.69 M/mm3) 2.34 L Hgb (10.1 - 13.8 g/dL) 8.7 L 6.4 *L Hct (32.5 - 41.8 %) 26.3 L 20.2 L MCV (84.6 - 96.6 fL) 86.3 MCH (27.3 - 33.9 pg) 27.4 MCHC (32.0 - 34.2 gm/dL) 31.7 L RDW (12.2 - 16.3 %) 15.9 Plt Count (134 - 363 K/mm3) 328 MPV (9.2 - 12.7 fL) 9.6 02/13 0525 Urines Urine Color (YELLOW) RED Urine Appearance (CLEAR) CLOUDY H Urine pH (5 - 9) 7.0 Ur Specific [place] (1.001 - 1.035) 1.015 Urine Protein (NEGATIVE) 2+ Urine Glucose (UA) (NEGATIVE) NEGATIVE Urine Ketones (NEGATIVE) NEGATIVE Urine Blood (NEGATIVE) 3+ H Urine Nitrite (NEGATIVE) NEGATIVE Urine Bilirubin (NEGATIVE) NEGATIVE Urine Urobilinogen (<=1.0 EU/dL) 0.2 Ur Leukocyte Esterase (NEGATIVE) 3+ H Urine RBC (NONE SEEN #/hpf) TOO NUMEROUS TO CNT H Urine WBC (NONE SEEN #/hpf) TOO NUMEROUS TO CNT H Ur Epithelial Cells (RARE - FEW #/HPF) FEW Urine Bacteria (RARE - FEW /HPF) FEW Microbiology: Date/Time Procedure - Status Source Growth 02/13 0538 Urine Culture - RES URINE ECG #1 Interpretation Text/Dict Note EKGs independently interpreted by myself. Sinus tachycardia with a heart rate of 110. Normal intervals. No STEMI. ECG Documented in MUSE Yes Date 02/14/24 Time 0644 Interpreted by ED physician Rate 110 Re-Evaluation MDM Free Text MDM Notes Free Text MDM Notes Differential diagnosis includes but is not limited to symptomatic anemia, UTI, electrolyte abnormality, hypoglycemia, hyperglycemia, rigors Re-Evaluation/Progress #1 Text/Dict Note The patient is feeling much better after she received 1 unit of blood. Her tachycardia has resolved. She is hemodynamically stable. Her repeat hemoglobin is 8.7. Her episodes of shaking have significantly improved. She feels comfortable going home. Return precautions were discussed. Time of Re-Eval 1429 Re-Eval Status Improved Consultation Consultation 1 Referral/Consult Name Emili Davila MD Pool Coordinator Called SHIPPING HELPER Pool Coordinator Discussed with bi consultant Requested Call Time 0815 Requested Call Date 02/14/24 Call Returned Call returned Call Returned Time 0815 Call Returned Date 02/14/24 Free Text Consult Notes Recommends administering one unit of blood and reassess her symptoms. Consultation 2 Referral/Consult Name ; Emili Davila MD Pool Coordinator Called SHIPPING HELPER Pool Coordinator Discussed with bi consultant Requested Call Time 1402 Requested Call Date 02/14/24 Call Returned Call returned Call Returned Time 1402 Call Returned Date 02/14/24 Free Text Consult Notes We discussed her repeat hemoglobin and her intermittent episodes of shaking. States it may be secondary to her anemia. if the patient is afebrile and her WBC is within normal limits, she can go if she feels better. Patient Discharge Departure Vital Signs/Condition Vital Signs First Documented: Result Date Time Pulse Ox 98 02/13 0510 B/P 137/88 02/13 0510 B/P Mean 104 02/13 0510 O2 Delivery Room air 02/13 0510 Temp 98.1 02/13 0510 Pulse 106 / 0510 Resp 18 02/13 0510 Last Documented: Result Date Time Pulse Ox 98 02/13 1435 B/P 146/68 02/13 1435 B/P Mean 94 02/13 1435 Temp 98.6 02/13 1435 Pulse 96 02/13 1435 Resp 18 02/13 1435 O2 Delivery Room air 02/13 0510 All vital signs available at the time of this entry have been reviewed. Clinical Impression Clinical Impression Primary Impression: Symptomatic anemia Disposition Decision Discharge )( Discharged to Home Yes )( Time 1432 )( Date 02/14/24 Discharge/Care Plan (Auto) Prescriptions Current Visit Scripts No Known Home Medications Referrals Provider Referral: Araceli Up MD Address: [address] [address] Critical Care Time Spent (minutes): 33 CC Note 1 Total critical care time [33] minutes. Total critical care time documented does not include time spent on separately billed procedures or the services of residents, students, nurses or physician assistants. I personally saw and examined the patient. I have reviewed all diagnostic interpretations and treatment plans as written. I was present for the aponte portions of any procedures performed and the inclusive time noted in any critical care statement. Critical care time includes patient management by me, time spent at the patients bedside, time to review lab and imaging results, discussing patient care, documentation in the medical record, and time spent with the family or caregiver. at 0650 RPT #:[id number] END OF REPORT [facility] 2024-02-14 06:44:00 [id number] [facility] [address] [place], [place] [address] PATIENT NAME: ISAÍAS MELISSA ADMIT DATE: 02/14/24 ACCOUNT NO: [id number] ROOM NO: AGE: 23 SEX: F ADMITTING PHYSICIAN: ATTENDING PHYSICIAN: Emili Tellez DO Order: [id number] Test Reason : TACHYCARDIA Test Date/Time Stamp: TueFeb 14 2024 06:44:33 Blood Pressure : / mmHG Vent. Rate : 110 BPM Atrial Rate : 110 BPM P-R Int : 128 ms QRS Dur : 068 ms QT Int : 326 ms P-R-T Axes : 055 079 040 degrees QTc Int : 441 ms Sinus tachycardia Otherwise normal ECG No previous ECGs available Confirmed by CAYETANO CHILDS ([id number]) on 02/14/2024 6:18:19 PM Referred By: Emili Tellez Confirmed by:CAYETANO CHILDS at 1818 PATIENT NAME: ISAÍAS MELISSA [facility] 2024-02-11 11:45:00 [facility] ([facility]) OB Disch REPORT#:[id number] REPORT STATUS: Signed REPORT INITIALIZATION DATE:02/11/24 TIME: 1145 PATIENT: ISAÍAS MELISSA UNIT #: [id number] ROOM/BED: : 00 AGE: 23 SEX: F ATTEND: Araceli Up MD ADM AUTHOR: Julieta Patel MD REPT SERVICE DT/TIME: 02/11/24 2249 * ALL edits or amendments must be made on the electronic/computer document * Subjective Subjective Admission EGA: Weeks: 37 Days: 1 EGA at delivery (wks/days): 37 weeks (2 days) Status/day: post (day 2) Patient reports: Patient reports: Yes: normal lochia, pain management effective, tolerating po well, voiding well, tolerating ambulation, flatus. No: complaints, bowel movement, nausea, vomiting, excessive bleeding, abdominal pain. Objective General VS: Vital Signs Date Temp Pulse Resp B/P B/P Mean Pulse Ox FiO2 02/09-02/10 97.5-98.3 98-124 - 126-146/86-90 99.0-107.6 98-100 Last Documented: Result Date Time B/P Mean 99.0 02/10 0802 Pulse Ox 100 02/10 0802 B/P 126/86 02/10 0802 Temp 97.8 02/10 0802 Pulse 116 02/10 0802 Resp 18 02/10 0802 O2 Delivery Room air 02/09 2306 PATIENT WEIGHT: Weight (lb): Weight (oz): Weight (kg): 95.425237 Physical Exam Breasts: Breasts: filling Cardiac: regular rate Lungs: unlabored breathing Neuro: Exam: alert, oriented x3 Abdomen: post gravid, soft, no abnormal tenderness, no guarding, no rebound tenderness Uterus: involution appropriate, non-tender Fundus: firm, non-tender Lochia: normal Lower extremities: Edema: trace Results Findings/Data: Laboratory Tests: 02/10 02/09 02/08 02/08 02/08 0758 0826 2023 1818 1357 Chemistry Sodium (136 - 145 mEq/L) 139 136 Potassium (3.4 - 4.5 mEQ/L) 4.4 4.2 Chloride (98 - 107 mEq/L) 112 H 111 H Carbon Dioxide (22 - 31 mEq/L) 22 19 L Anion Gap (10 - 20) 9.4 L 10.2 BUN (8 - 23 mg/dL) 7 L 10 Creatinine (0.55 - 1.02 mg/dL) 0.7 0.9 Glomerular Filtr Rate (>60 ml/min) 124.55 92.12 Glucose (74 - 106 mg/dL) 91 130 H POC Glucose (65 - 110 mg/dL) 96 68 72 Calcium (8.3 - 10.6 mg/dL) 8.5 8.2 L Total Bilirubin (0.3 - 1.2 mg/dL) 0.3 0.4 AST (< 34 units/L) 33 51 H ALT (10 - 49 units/L) 48 69 H Total Alk Phosphatase (46 - 116 units/L) 199 H 194 H Total Protein (5.7 - 8.2 g/dL) 5.5 L 4.8 L Albumin (3.2 - 4.8 g/dL) 3.0 L 2.7 L Hematology WBC (6.5 - 12.3 K/mm3) 18.1 H 19.5 H RBC (3.51 - 4.69 M/mm3) 2.83 L 2.67 L Hgb (10.1 - 13.8 g/dL) 7.6 L 7.1 L Hct (32.5 - 41.8 %) 24.1 L 22.0 L MCV (84.6 - 96.6 fL) 85.2 82.4 L MCH (27.3 - 33.9 pg) 26.9 L 26.6 L MCHC (32.0 - 34.2 gm/dL) 31.5 L 32.3 RDW (12.2 - 16.3 %) 14.8 14.4 Plt Count (134 - 363 K/mm3) 311 241 MPV (9.2 - 12.7 fL) 11.1 10.3 Neut % (Auto) (57.9 - 77.3 %) 82.9 H 84.9 H Lymph % (Auto) (14.5 - 29.7 %) 11.1 L 7.6 L [place] % (Auto) (3.6 - 10.2 %) 4.8 6.5 Eos % (Auto) (0.0 - 3.0 %) 0.4 0.0 Baso % (Auto) (0.1 - 0.9 %) 0.2 0.2 Neut # (Auto) (K/mm3) 15.0 16.5 Lymph # (Auto) (K/mm3) 2.0 1.5 [place] # (Auto) (K/mm3) 0.9 1.3 Eos # (Auto) (K/mm3) 0.07 0 Baso # (Auto) (K/mm3) 0.0 0.0 Immature Plt Fraction (0.0 - 10.8 %) 2.3 Discharge Summary General Free Text A P: 23 yo now s/p TSVD @ 37w1d c/b shoulder dystocia and 3rd degree laceration (mIOL due to A2GDM requiring Insulin). 1. PPD#2 -Meeting appropriate milestones -Baby at bedside, bonding appropriately -Hgb: 9.7--> QBL: 710 cc-->7.1. Acute on chronic blood loss and iron deficiency anemia. Denies all signs/symptoms of anemia. sp IV iron -Delivery c/b shoulder dystocia and 3rd degree laceration. Discussed risk of recurrence in future pregnancies and recommendation for scheduled CS. Bowel regimen scheduled. sp Ancef 2 grams x 1. reviewed perineal care 2. pre-eclampsia without SF -Mild range BPs intrapartum and -PIH panel slightly elevated LFTs (AST: 51/ ALT: 69) back to normal today -Denies PIH symptoms -BPs currently normotensive to mild range -monitor bps at home. strict precautions discussed 3. A2GDM -Will need 2 hr GTT @ 6 weeks PP 3. Cholelithiasis -Dx @ 35 weeks -S/p consult w/ Dr. Farley. Initially plan for cholecystectomy while in house following delivery, however pt now desires to defer until outpatient. 4. PMH: Class III Obesity (BMI: 42), cholelithiasis, endometriosis, anemia 5. PSH: None 6. PNL: Rh Positive/MMR NON-IMMUNE (for MMR PP)/ , GBS: Negative 7. Baby boy! "Hira Kumari", Pedi: Dr. Gifford in [place] ([facility] for Delivery). Desires Circ Dispo: Meeting appropriate milestones. DC home today Assessment: nml progress, acute blood loss anemia, iron deficienc anemia Date of admission: Date of admission: 02/08/24 Admission diagnosis: diabetes-gestational, induction-medically indic Hospital course: induction of labor, spontaneous vag delivery, epidural anesthesia Procedures: epidural anesthesia, spontaneous vaginal deliv Discharge condition: stable Discharge to: Home/Self Care Discharge diagnosis: gestational diabetes Baby A: Vaginal delivery: spontaneous status: live born Gender: male (Hira) 1 minute: 7 5 minutes: 9 Anomalies: none seen Plan: routine care Vaginal packing at delivery: No Discharge Instructions Instructions: routine instr sheet given Diet: Regular Activity: As Tolerated, No [place] for 6 Wks, No Strenuous Activity Additional discharge routines: Attending Follow-Up Discharge meds: Stop taking the following medications: INSULIN LISPRO (HumaLOG CARTRIDGE (15mL)) 100 UNIT/ML CARTRIDGE 6 UNITS SUBCUTANEOUS TWICE DAILY. Continue taking these medications: PNV WITH FE FUMARATE/FA () 27 MG IRON-800 MCG TAB 1 TABLET ORAL DAILY. Start taking the following new medications: IBUPROFEN (MOTRIN) 600 MG TAB 600 MILLIGRAM ORAL EVERY 6 HOURS NEEDED. as needed for PAIN Days = 30 Qty = 30 No Refills DOCUSATE SODIUM (COLACE) 100 MG CAP 100 MILLIGRAM ORAL EVERY 12 HOURS. as needed for constipation Days = 30 Qty = 30 No Refills Prescriptions: e-prescribe Add'l Follow-up Appointments Attending Physician: Attending Physician: Araceli Up MD at 1151 RPT #:[id number] END OF REPORT [facility] 2024-02-10 08:16:00 [facility] ([facility]) OB Postpart Progr Note REPORT#:[id number] REPORT STATUS: Signed REPORT INITIALIZATION DATE:02/10/24 TIME: 815 PATIENT: ISAÍAS MELISSA UNIT #: [id number] ROOM/BED: : 00 AGE: 23 SEX: F ATTEND: Araceli Up MD ADM AUTHOR: Araceli Up MD REPT SERVICE DT/TIME: 02/10/24 0816 * ALL edits or amendments must be made on the electronic/computer document * Subjective Subjective Admission EGA: Weeks: 37 Days: 1 EGA at delivery (wks/days): 37 weeks (2 days) Status/Day: post (day 1) Patient reports: Patient reports: Yes pain management effective, Yes tolerating po well, Yes voiding well, Yes voiding without pain, Yes tolerating ambulation, Yes perineal pain, No nausea, No vomiting, No excessive bleeding, No abdominal pain, No headache, No blurred vision Comments: C/o fatigue and vaginal soreness, otherwise N/C. Voiding freely. Denies all signs/symptoms of anemia. Objective Nursing Documentation Review Nursing Data: The data set between the solid lines has been imported from nursing documentation. Any exceptions have been noted below under Provider comments. Feeding preference: Post hemorrhage risk score: HighRisk Provider comments on imported nursing data: [] General VS: Vital Signs: Date Time Temp Pulse Resp B/P B/P Pulse O2 O2 Flow FiO2 Mean Ox Delivery Rate 02/09 0835 103.0 02/09 0835 99.0 118 18 136/86 02/09 0315 144/86 02/09 0255 112.0 02/09 0255 99.7 94 16 147/94 97 02/09 0227 105.0 02/09 0227 93 143/78 02/09 0212 106.0 02/09 0212 112 141/80 02/09 0157 101.0 02/09 0157 105 136/78 02/09 0143 101.0 02/09 0143 116 129/84 07/26 0127 74.0 / 0127 121 128/55 02/09 0121 83.0 02/09 0121 107 122/58 02/09 0112 75.0 07/ 0112 112 97/62 02/09 0057 73.0 07/ 0057 99 97/64 / 0043 74.0 / 0043 108 100/57 02/09 0012 106.0 02/09 0012 134 141/82 02/09 0003 99.0 / 0002 96.0 02/09 0002 129 121/79 02/08 2357 78.0 07 2357 111/69 02/08 2327 105.0 07 2327 83 148/80 07 2312 101.0 07 2312 93 144/76 02/08 2257 102.0 07/ 2257 90 143/80 07 2243 99.0 07/ 2243 86 134/78 07 2239 98.0 07 2227 94.0 07/ 2227 95 126/75 07 2212 102.0 07/ 2212 99 134/78 07 2157 100.0 07/ 2157 95 134/79 07 2143 102.0 07 2143 100 133/84 02/08 2129 98.9 07/ 2127 88.0 07/ 2127 119/71 07 2112 93.0 07/ 2112 89 125/72 07 2057 84.0 07 2057 95 118/63 07 2042 87.0 07/ 2042 98 124/63 07 2027 89.0 07/7 96 128/63 07/2024 98.3 07/ 2012 85.0 07/ 2012 91 121/65 07/ 1957 88.0 07/ 1957 92 123/66 07/ 1927 94.0 07/ 1927 97 140/70 07/ 1913 80.0 07/ 1913 98.3 95 20 122/56 07 1857 96.0 07/ 1857 107 132/74 07/25 1842 95.0 07/25 1842 92 148/66 07/ 1828 95.0 07/ 1828 91 143/66 02/08 1812 100.0 02/08 1812 86 146/70 02/08 1758 111.0 02/08 1758 90 166/77 02/08 1742 18 02/08 1742 110.0 02/08 1742 100 159/78 02/08 1727 105.0 02/08 1727 93 150/74 02/08 1712 104.0 02/08 1712 85 144/79 02/08 1657 96.0 02/08 1657 84 142/67 02/08 1645 93.0 02/08 1645 85 136/65 02/08 1612 74.0 02/08 1612 98.4 81 18 103/51 02/08 1557 76.0 02/08 1557 91 110/55 02/08 1542 94.0 02/08 1542 98 128/72 02/08 1527 102.0 02/08 1527 90 135/80 02/08 1512 94.0 02/08 1512 77 130/72 02/08 1457 99.0 02/08 1457 76 136/75 02/08 1441 97.0 02/08 1441 98.8 83 130/77 02/08 1437 94.0 02/08 1437 77 130/74 02/08 1433 94.0 02/08 1433 85 129/73 02/08 1411 108.0 02/08 1411 92 143/85 02/08 1215 117.0 02/08 1215 117 148/97 02/08 1214 111.0 02/08 1214 91 143/92 02/08 1213 114.0 02/08 1213 100 141/96 PATIENT WEIGHT: Weight (lb): Weight (oz): Weight (kg): 95.012992 Physical Exam Lungs: unlabored breathing Neuro: Exam: alert, oriented x3, normal speech Abdomen: soft, no abnormal tenderness Incision site: none Uterus: involution appropriate, non-tender Fundus: firm Lacerations: Perineal laceration(s): 2nd Degree w/vag muscles, 3rd Degree w/anal sphinct Lower extremities: Edema: trace Result Findings/Data: Laboratory Tests: 02/0926 2023 1818 1357 Chemistry Sodium (136 - 145 mEq/L) 136 Potassium (3.4 - 4.5 mEQ/L) 4.2 Chloride (98 - 107 mEq/L) 111 H Carbon Dioxide (22 - 31 mEq/L) 19 L Anion Gap (10 - 20) 10.2 BUN (8 - 23 mg/dL) 10 Creatinine (0.55 - 1.02 mg/dL) 0.9 Glomerular Filtr Rate (>60 ml/min) 92.12 Glucose (74 - 106 mg/dL) 130 H POC Glucose (65 - 110 mg/dL) 96 68 72 Calcium (8.3 - 10.6 mg/dL) 8.2 L Total Bilirubin (0.3 - 1.2 mg/dL) 0.4 AST (< 34 units/L) 51 H ALT (10 - 49 units/L) 69 H Total Alk Phosphatase (46 - 116 units/L) 194 H Total Protein (5.7 - 8.2 g/dL) 4.8 L Albumin (3.2 - 4.8 g/dL) 2.7 L Hematology WBC (6.5 - 12.3 K/mm3) 19.5 H RBC (3.51 - 4.69 M/mm3) 2.67 L Hgb (10.1 - 13.8 g/dL) 7.1 L Hct (32.5 - 41.8 %) 22.0 L MCV (84.6 - 96.6 fL) 82.4 L MCH (27.3 - 33.9 pg) 26.6 L MCHC (32.0 - 34.2 gm/dL) 32.3 RDW (12.2 - 16.3 %) 14.4 Plt Count (134 - 363 K/mm3) 241 MPV (9.2 - 12.7 fL) 10.3 Neut % (Auto) (57.9 - 77.3 %) 84.9 H Lymph % (Auto) (14.5 - 29.7 %) 7.6 L [place] % (Auto) (3.6 - 10.2 %) 6.5 Eos % (Auto) (0.0 - 3.0 %) 0.0 Baso % (Auto) (0.1 - 0.9 %) 0.2 Neut # (Auto) (K/mm3) 16.5 Lymph # (Auto) (K/mm3) 1.5 [place] # (Auto) (K/mm3) 1.3 Eos # (Auto) (K/mm3) 0 Baso # (Auto) (K/mm3) 0.0 Results: labs reviewed, vital signs reviewed, vital signs stable Diagnosis, Assessment Plan Diagnosis, Assessment Plan Free text A P: 23 yo now s/p TSVD @ 37w1d c/b shoulder dystocia and 3rd degree laceration (mIOL due to A2GDM requiring Insulin). 1. PPD#1 -Meeting appropriate milestones -Baby at bedside, bonding appropriately -Hgb: 9.7--> QBL: 710 cc-->7.1. Acute on chronic blood loss and iron deficiency anemia. Denies all signs/symptoms of anemia. Plan for IV iron today and repeat labs in AM. If Hgb < 7 and or signs/symptoms of anemia, will plan for blood transfusion. -Delivery c/b shoulder dystocia and 3rd degree laceration. Discussed risk of recurrence in future pregnancies and recommendation for scheduled CS. Bowel regimen scheduled. Ancef 2 grams x 1 dose ordered. 2. Elevated BPs -Mild range BPs intrapartum and -PIH panel today remarkable for slightly elevated LFTs (AST: 51/ ALT: 69), otherwise wnl -Denies PIH symptoms -BPs currently normotensive to mild range -Will plan for repeat PIH panel in AM. Will start Magnesium if warranted. 3. A2GDM -Will need 2 hr GTT @ 6 weeks PP 3. Cholelithiasis -Dx @ 35 weeks -S/p consult w/ Dr. Farley. Initially plan for cholecystectomy while in house following delivery, however pt now desires to defer until outpatient. 4. PMH: Class III Obesity (BMI: 42), cholelithiasis, endometriosis, anemia 5. PSH: None 6. PNL: Rh Positive/MMR NON-IMMUNE (for MMR PP)/ , GBS: Negative 7. Baby boy! "Hira Kumari", Pedi: Dr. Gifford in [place] ([facility] for Delivery). Desires Circ Dispo: Meeting appropriate milestones. Plan for IV Iron today and repeat PIH panel in AM. Assessment: nml progress, acute blood loss anemia, iron deficienc anemia Plan: routine care Plan discussed with: patient, parent at 1100 RPT #:[id number] END OF REPORT [facility] 2024-02-10 01:31:00 [facility] ([facility]) OB Delivery Note REPORT#:[id number] REPORT STATUS: Signed REPORT INITIALIZATION DATE:02/10/24 TIME: 130 PATIENT: ISAÍAS MELISSA UNIT #: [id number] ROOM/BED: [address] : 00 AGE: 23 SEX: F ATTEND: Araceli Up MD ADM AUTHOR: Verna Neal MD REPT SERVICE DT/TIME: 02/10/24130 * ALL edits or amendments must be made on the electronic/computer document * See Addendum OB Delivery Nursing Documentation Review Nursing data: The data set between the solid lines has been imported from nursing documentation. Any exceptions have been noted below under Provider comments. _ ROM date: 02/09/24 ROM time: 1012 Membranes rupture method: AROM Amniotic fluid color: Clear Amniotic fluid amount: Steroids prior to arrival: Antibiotic prophylaxis given: Post hemorrhage risk score: LowRisk Delivery date infant A: 02/09/24 Delivery time A: 2344 Birthweight (gm) A: 3270 Weight (lb) infant A: Weight (oz) infant A: Gender infant A: Male 1 minute A: 7 5 minutes infant A: 9 10 minutes A: Cord pH obtained A: Vacuum time infant A: Vacuum # pulls infant A: Vacuum # popoffs A: QBL at delivery: 710 __ Provider comments on imported nursing data: [] Pre-delivery GBS status: GBS status: negative evaluation at delivery: NRP certified personnel Admission EGA: Weeks: 37 Days: 1 EGA at delivery (wks/days): 37 weeks (2 days) Admission indication: A2 GDM (insulin) Blood Loss/Details Blood loss at delivery: <1K: no sx hypovol=no hem Cause of bleeding: uterine atony w/o hemorr, vag./perineal laceration Management: uterotonic agent(s), fundal massage, suture/repair, TXA QBL at delivery (ml's): 710 Baby A Information Baby A information Delivery date: 02/10/24 Delivery time: 0044 status: live born Wt of baby (grams): 3270 Gender: male (Hira) 1 minute: 7 5 minutes: 9 Presentation: vertex Anomalies: none seen ABG details Baby A Cord blood gases: not collected Nuchal cord Baby A Nuchal cord: no Additional comments: Patient pushed effectively and quickly from +1 station. As the head crowned and delivered, the perineum was protected with blue towel. The anterior shoulder made no descent with pushing and gentle downward traction. The patient was put into McRobert's. The patient pushed without any further descent. The RN applied suprapubic pressure without any descent. I carefully delivered the posterior arm (left) and then was able to deliver the anterior shoulder with ease. The infant was vigorous and crying The was then placed on maternal abdomen, bulb suctioned, and the cord clamped and cut after 60 seconds. Placenta delivered spontaneously and intact with atony. Hemostasis achieved with fundal massage, IV pitocin, and methergine. A 3rd degree perineal laceration was noted. Using an overglove, a rectal exam was performed revealing an intact rectal capsule, albiet thin. 2-O vicryl was used in four interrupteds to reinforce the interrupted muscles near the sphincter. Then, 2-0-vicyrl was used to repair the vaginal and perineal lacerations in running fashion. As they were bleeding briskly, TXA was given to aid in hemostasis. A gentle rectal exam revealed that the anatomy had been restored and no palpable suture in the rectum. Sponge, lap, and needle counts correct x 2. Good maternal-infant bonding noted. QBL 710cc Infant on warmer vigorous, pink, alert, and moving bilateral arms spontaneously. I discussed with patient, her , and her mother the shoulder dystocia, which resolved in less than 1minute. Given a shoulder dystocia and 3rd degree laceration, consideration should be given to possible delivery for next . Vaginal Delivery Vaginal Delivery Vaginal delivery: Labor: induced Medications/Devices used: oxytocin, cytotec Vaginal delivery: spontaneous Amniotic fluid: clear Anesthesia type: epidural anesthesia Episiotomy: none Episiotomy repair: no Laceration repair: 2-0 suture (vicryl) Placenta: spontaneous, intact Post delivery meds used: oxytocin Count: correct, vag exam neg for sponges Vaginal packing: No Mother's condition: mother stable Infant's condition: stable in room Lacerations: Perineal laceration(s): 2nd Degree w/vag muscles, 3rd Degree w/anal sphinct Shoulder dystocia present: yes Initial traction: gentle downward traction, asst-matern expuls forces Time head delivered: 1244 Time body delivered: 1245 Shoulder under pubis head delivered: right Fundal pressure applied: no at 0144 Addendum 1: 02/10/24 0146 by Verna Neal MD Delivery time was 2344 at 0146 RPT #:[id number] END OF REPORT [facility] 2024-02-09 07:38:00 [facility] ([facility]) Clinical Note REPORT#:[id number] REPORT STATUS: Signed REPORT INITIALIZATION DATE:02/09/24 TIME: 07 PATIENT: ISAÍAS MELISSA UNIT #: [id number] ROOM/BED: [address] : 00 AGE: 23 SEX: F ATTEND: Araceli Up MD ADM AUTHOR: Araceli Up MD REPT SERVICE DT/TIME: 02/09/24 0756 * ALL edits or amendments must be made on the electronic/computer document * See Addendum Clinical Note Note: see full H P in paper chart 23 yo @ 37w1d admitted for mIOL due to A2GDM (on insulin). 1. mIOL -S/p Cytotec 50 mcg x doses. SVE @ 1015: 50/-3, AROM (clear) -EFW: 3400 grams, pelvis felt to be adequate for delivery. -Plan for Pit 2x2 -Cat 1 FHTs 2. A2GDM -on NPH 6 units qAM and qPM -Accuchecks intrapartum wnl thus far -Will need 2 hr GTT @ 6 weeks PP 3. Cholelithiasis -Dx @ 35 weeks -S/p consult w/ Dr. Farley. Plan for cholecystectomy while in house following delivery. 4. PMH: Class III Obesity (BMI: 42), cholelithiasis, endometriosis 5. PSH: None 6. PNL: Rh Positive/MMR NON-IMMUNE (for MMR PP)/ , GBS: Negative 7. Baby boy! "Hira Kumari", Epidural/Stadol PRN, Pedi: Dr. Gifford in [place] ([facility] for Delivery). Desires Circ Dispo: Continue mIOL with plan of care as stated above. Plan SVE recheck in 4-6 hours. All questions answered. at 1106 Addendum 1: 02/09/24 1544 by Araceli Up MD Pt tolerating labor with no complaints. Working epidural in place. SVE @ 1530: 50/-3. Pit @ 4 Cat 1 FHTs Continue Pit 2x2. Plan SVE recheck in 4-6 hours. at 1546 RPT #:[id number] END OF REPORT [facility] 2024-02-01 22:49:00 [facility] ([facility]) MANJ[facility] Evaluation Note REPORT#:[id number] REPORT STATUS: Signed REPORT INITIALIZATION DATE:02/01/24 TIME: 2248 PATIENT: ISAÍAS MELISSA UNIT #: [id number] ROOM/BED: : 00 AGE: 23 SEX: F ATTEND: Araceli Up MD ADM AUTHOR: Linda Corrales MD REPT SERVICE DT/TIME: 02/01/242248 * ALL edits or amendments must be made on the electronic/computer document * MANJIT History Chief complaint: decreased movement HPI: 23 year old 36w0d who presents to [facility] report of decreased movement. The patient reports doing kick counts and only feeling two movements. She reports no contractions, vaginal bleeding or loss of fluid. Of note, the patient reports having GDMA2 on insulin. She has not taken it due to loss of power after Madeleine, but states that her blood sugars have been normal. history: : 1 Past medical history: gestational diabetes Past surgical history: denies PSH Social history: no alcohol use, no tobacco use, alcohol use Medications: Home Medications: Medication Dose/Rte/Freq Days Qty Entered Last Max Daily Dose Reviewed PNV WITH FE 1 TAB PO DAILY 12/07/23 FUMARATE/FA 1736 () Strength: 27 MG IRON-800 MCG TAB INSULIN LISPRO 6 UNITS SUBQ BID 01/21/24 (HumaLOG CARTRIDGE 1219 (15mL)) Strength: 100 UNIT/ML CARTRIDGE Allergies Coded Allergies: No Known Allergies (02/01/24) Objective General VS: PATIENT WEIGHT: Weight (lb): Weight (oz): Weight (kg): 90.983529 Physical Exam Cardiac: regular rate and rhythm Lungs: unlabored breathing Neuro: Exam: alert, oriented x3 Uterine activity: Monitor: toco Frequency (description): none FHR evaluation: Baseline: 150 bpm Variability: moderate 6-25 bpm Accelerations: 15 X 15 Decelerations: none FHR category: Reactive NST Diagnosis, Assessment Plan Diagnosis, Assessment Plan Free Text A P: 23 year old at 36w0d with decreased movement - BPP 04/26. Patient reassured and able to see movement. Kick counts reviewed. Patient discharged home in stable condition. at 2342 RPT #:[id number] END OF REPORT [facility] 2024-01-29 23:47:00 [facility] ([facility]) MANJIT Evaluation Note REPORT#:[id number] REPORT STATUS: Signed REPORT INITIALIZATION DATE:01/29/24 TIME: 2346 PATIENT: ISAÍAS MELISSA UNIT #: [id number] ROOM/BED: : 00 AGE: 23 SEX: F ATTEND: Araceli Up MD ADM AUTHOR: Hao Barahona MD REPT SERVICE DT/TIME: 01/29/242346 * ALL edits or amendments must be made on the electronic/computer document * MANJIT History Chief complaint: suspected ruptured memb HPI: 23yo g1 IUP 35w4d reports feeling her vagina "wet" since last tuesday denies VB or UC +FM history: : 1 Conditions of : gestational diabetes, insulin Past medical history: gestational diabetes, gallstones Past surgical history: denies PSH Social history: no alcohol use, no tobacco use, no drug use Allergies Coded Allergies: No Known Allergies (01/29/24) Review of Systems All systems rev neg: except as marked Objective General VS: PATIENT WEIGHT: Weight (lb): Weight (oz): Weight (kg): [id number] Physical Exam Cardiac: regular rate and rhythm Lungs: unlabored breathing Neuro: Exam: alert, oriented x3, normal speech Abdomen: gravid, soft, no abnormal tenderness Uterine activity: Monitor: toco Frequency (description): none Pelvic exam: Sterile speculum exam: visually closed, physiological discharge, no pooling, no bleeding FHR evaluation: Baseline: 155 bpm Variability: moderate 6-25 bpm Accelerations: 15 X 15 Decelerations: none FHR category: category 1 Membranes: Membranes: Intact Diagnosis, Assessment Plan Diagnosis, Assessment Plan Free Text A P: IUP 35 weeks no clinical evidence of pprom or ptl if ARMAAN normal , she is to be d/h patient has cliff at am with primary OB at 2352 RPT #:[id number] END OF REPORT [facility] 2024-01-21 09:00:00 [facility] ([facility]) EMERGENCY PROVIDER REPORT REPORT#:[id number] REPORT STATUS: Signed DATE:01/21/24 TIME: 09 PATIENT: ISAÍAS MELISSA UNIT #: [id number] ROOM/BED: AGE: 23 SEX: F PCP PHYS: Araceli Up MD SERVICE AUTHOR: Krystle Montoya MD * ALL edits or amendments must be made on the electronic/computer document * MANJIT History Chief complaint: epigastric pain HPI: patient 23 yr old at 34 5/7wk with epigastric pain which started this morning at 2 am , she has this pain going on since 22wkj on and off also vomitted 1 time this morning denies any bleeding , no LOF , movement present she has some cramping , she is GDMA2 on insulin 6 lispro am/pm , she gets her care with Dr Up history: : 1 Term: 0 : 0 Abortus: 0 Living children: 0 Current : EDC: 02/29/24 EGA (weeks/days): 34 5/7wk Conditions of : gestational diabetes Past medical history: gestational diabetes Past surgical history: denies PSH Social history: no alcohol use, no tobacco use, no drug use Family history Family history was reviewed; no changes noted. Medications: Home Medications: Medication Dose/Rte/Freq Days Qty Entered Last Max Daily Dose Reviewed PNV WITH FE 1 TAB PO DAILY 12/07/23 FUMARATE/FA 1736 () Strength: 27 MG IRON-800 MCG TAB INSULIN LISPRO 6 UNITS SUBQ BID 01/21/24 (HumaLOG CARTRIDGE 1219 (15mL)) Strength: 100 UNIT/ML CARTRIDGE Current Hospital Medications: Central Nervous System Agents Sig/Rachael Start time Last Medication Dose Route Stop Time Status Admin Morphine Sulfate 2 MG Q4H PRN PRN 01/20 0900 DCD 01/20 IV 03/21 0859 1246 Electrolytic, Caloric, And Mamadou Sig/Rachael Start time Last Medication Dose Route Stop Time Status Admin Lactated Ringer's 1,000 ML BOLUS ONCE ONE 01/20 0900 DC 01/20 (LACTATED RINGERS) IV 01/20 0959 0912 Gastrointestinal Drugs Sig/Rachael Start time Last Medication Dose Route Stop Time Status Admin Famotidine 20 MG ONCE ONE 01/20 1115 DC 01/20 (PEPCID 20 MG TAB) PO 01/20 1116 1120 Allergies Coded Allergies: No Known Allergies (01/21/24) Review of Systems Constitutional: Denies: fever, malaise. Respiratory: Denies: BRITTON (dyspnea on exertion), SOB. Cardiovascular: Denies: chest pain, palpitations. GI: Reports: abdominal pain, nausea, vomiting. : Reports: pelvic pain, . Denies: dysuria, frequency, vaginal bleeding, vaginal discharge. Psych: Denies: anxiety, stress. All systems rev neg: except as marked Objective General VS: Last Documented: Result Date Time B/P Mean 100.0 01/20 1245 B/P 125/85 01/20 1245 Pulse 92 01/20 1245 Pulse Ox 100 01/20 1244 Temp 98.3 01/20 0834 Resp 16 01/20 0834 Vital Signs Date Temp Pulse Resp B/P B/P Mean Pulse Ox FiO2 / 98.3 86-145 16 122-137/73-85 92.0-101.0 100 PATIENT WEIGHT: Weight (lb): 199 Weight (oz): Weight (kg): 90.500 Physical Exam HEENT: normocephalic w/o injury Cardiac: regular rate and rhythm Lungs: clear to auscultation Abdomen: gravid Uterine activity: Monitor: toco Frequency (description): irregular FHR evaluation: Baseline: 150 bpm Variability: moderate 6-25 bpm Accelerations: 15 X 15 Decelerations: none FHR category: category 1 Results Findings/Data: Laboratory Tests: 01/20 906 Chemistry Sodium (136 - 145 mEq/L) 135 L Potassium (3.4 - 4.5 mEQ/L) 4.8 H Chloride (98 - 107 mEq/L) 107 Carbon Dioxide (22 - 31 mEq/L) 22 Anion Gap (10 - 20) 10.8 BUN (8 - 23 mg/dL) 8 Creatinine (0.55 - 1.02 mg/dL) 0.6 Glomerular Filtr Rate (>60 ml/min) 129.27 Glucose (74 - 106 mg/dL) 114 H Calcium (8.3 - 10.6 mg/dL) 9.3 Total Bilirubin (0.3 - 1.2 mg/dL) 0.7 AST (< 34 units/L) 79 H ALT (10 - 49 units/L) 71 H Total Alk Phosphatase (46 - 116 units/L) 206 H Total Protein (5.7 - 8.2 g/dL) 6.1 Albumin (3.2 - 4.8 g/dL) 3.7 Hematology WBC (6.5 - 12.3 K/mm3) 11.9 RBC (3.51 - 4.69 M/mm3) 4.18 Hgb (10.1 - 13.8 g/dL) 11.5 Hct (32.5 - 41.8 %) 36.0 MCV (84.6 - 96.6 fL) 86.1 MCH (27.3 - 33.9 pg) 27.5 MCHC (32.0 - 34.2 gm/dL) 31.9 L RDW (12.2 - 16.3 %) 13.2 Plt Count (134 - 363 K/mm3) 392 H MPV (9.2 - 12.7 fL) 9.8 Neut % (Auto) (57.9 - 77.3 %) 75.4 Lymph % (Auto) (14.5 - 29.7 %) 19.1 [place] % (Auto) (3.6 - 10.2 %) 4.7 Eos % (Auto) (0.0 - 3.0 %) 0.1 Baso % (Auto) (0.1 - 0.9 %) 0.2 Neut # (Auto) (K/mm3) 9.0 Lymph # (Auto) (K/mm3) 2.3 [place] # (Auto) (K/mm3) 0.6 Eos # (Auto) (K/mm3) 0.01 Baso # (Auto) (K/mm3) 0.0 Recent Impressions: ULTRASOUND - US ABDOMEN LTD 01/20 09 Report Impression - Status: SIGNED Entered: 01/21/2024 1102 IMPRESSION: Cholelithiasis without evidence of cholecystitis. Impression By: [email or web address] - Prince Wilson MD Diagnosis, Assessment Plan Diagnosis, Assessment Plan Problem List/A P: 1. 34 weeks gestation of 2. Cholelithiasis Free Text A P: Patient 23 yr old at 34 3/7wk with epigastric pain radiating to back Plan Observation NST UA CBC,CMP, IVF Pain management US showed cholelithiasis, no obstruction of cholecystitis patient advised to follow up with primary OB this tuesday US report given Pain management tylenol as needed Return to MANJIT as needed or with any worsening symptoms Pain bleeding PIH precaution Assessment/Impression: reactive NST, no evidence of labor, no evidence of infection, no active bleeding Plan: discharge home, IVF, labor precautions, preeclampsia precautions, follow up, follow up with primary OB this tuesday US report given to patient Plan discussed with: patient, spouse/partner, nurse, primary caregiver at 2033 RPT #:[id number] END OF REPORT [facility] 2023-12-07 15:44:00 [facility] ([facility]) EMERGENCY PROVIDER REPORT REPORT#:[id number] REPORT STATUS: Signed DATE:12/07/23 TIME: 1544 PATIENT: ISAÍAS MELISSA UNIT #: [id number] ROOM/BED: AGE: 23 SEX: F PCP PHYS: Araceli Up MD SERVICE AUTHOR: Tip Arndt MD * ALL edits or amendments must be made on the electronic/computer document * MANJIT History Chief complaint: discomfort, nausea and vomiting HPI: THIS IS A 23 Y/O WHO PRESENTED TO MANJIT WITH C/O VOMITING TWICE THIS AM AFTER EATING A BREAKFAST TACO. SHE HAD UPPER ABDOMINAL PAIN JUST BEFORE THE VOMITED. THE PAIN HAS NOW RESOLVE. SHE SEEMS TO BE HIGHLY ANXIOUS. SHE WAS TOLD TO START ZOLOFT BY NURSE PRACTITIONER BUT DID NOT. SHE DENIES ANY CONTRACTIONS/VAGINAL BLEEDING OR LEAKAGE OF FLUID. BABY HAS BEEN ACTIVE ON THE MONITOR SINCE SHE ARRIVED. history: : 1 Term: 0 Current : EDC: 02/29/24 EGA (weeks/days): 28WEEKS Conditions of : ANXIETY GDM JUST DIAGNOSEDE ONE WEEK AGO Past medical history: denies PMH Past surgical history: denies PSH Social history: Allergies Coded Allergies: No Known Allergies (12/07/23) Review of Systems GI: Reports: abdominal pain (ALL THESE SYMPTOMS RESOLVED), nausea, vomiting. All systems rev neg: except as marked Objective General VS: Last Documented: Result Date Time Pulse Ox 98 12/06 1459 Pulse 112 12/06 1459 B/P Mean 94.0 12/06 1456 B/P 127/71 12/06 1456 Vital Signs Date Temp Pulse Resp B/P B/P Mean Pulse Ox FiO2 12/06 112-123 127-128/71-72 91.0-94.0 97-98 PATIENT WEIGHT: Weight (lb): Weight (oz): Weight (kg): Physical Exam HEENT: normocephalic w/o injury Cardiac: regular rate and rhythm Neuro: Exam: alert, oriented x3 Abdomen: gravid, soft, no abnormal tenderness, no guarding, no rebound tenderness Uterine activity: Monitor: toco Frequency (description): none FHR evaluation: Baseline: 140 bpm Variability: moderate 6-25 bpm Accelerations: 15 X 15 Decelerations: none FHR category: category 1 Lower extremities: Edema: none Results Findings/Data: Laboratory Tests: 12/06 1515 Urines Urine Color (YELLOW) YELLOW Urine Appearance (CLEAR) Slightly-Cloudy Urine pH (5 - 9) 5.0 Ur Specific [place] (1.001 - 1.035) 1.021 Urine Protein (NEG) 1+ H Urine Glucose (UA) (NEG) 1+ H Urine Ketones (NEG) 2+ H Urine Blood (NEG) NEG Urine Nitrite (NEG) NEG Urine Bilirubin (NEG) NEGATIVE Urine Urobilinogen (NEG mg/dL) NEGATIVE Ur Leukocyte Esterase (NEG) NEG Urine RBC (NONE SEEN #/hpf) 0-2 Urine WBC (NONE SEEN #/hpf) 6-10 H Ur Epithelial Cells (RARE - FEW #/HPF) MODERATE H Urine Mucus (NONE SEEN) RARE Diagnosis, Assessment Plan Diagnosis, Assessment Plan Assessment/Impression: PREG @ 28 WKS VOMITING-RESOLVED MOST LIKELY SECONDARY TO FOOD SHE ATE Plan: WILL ORALLY HYDRATE AND MOST LIKELY DISCHARGE I DID RECOMMEND HYDRATION AT HOME THIS EVENING AND BLAND DIET TONIGHT Plan discussed with: patient, spouse/partner, nurse at [address] [facility] #:[id number] END OF REPORT [facility] 2023-11-09 22:10:00 Pt discharged with diagnosis of CP, 24 weeks gestation of , and abd pain during in second trimester. Printed and verbal instructions reviewed with and given to pt. Prescriptions given x 0. Pt verbalized understanding of teaching and recommended follow-up. Denies questions or concerns at this time. Pt ambulatory at discharge. Appears in no apparent distress. No ataxia noted. Accompanied by significant other. [facility] 2023-11-09 20:20:20 Pt to ED via [facility] co resolved episode CP, back pain, and epigastric pain starting today at unknown time. EMS reports pt is 24weeks . Pt describes pain as "tight" and "cramping". Pt states episode lasted 15 minutes. care established, no complications found at this time. Now has no complaints. 18g LAC established and 400mL NS given en route. Cindi Lovell RN [facility] 2023-02-24 10:45:00 Formatting of this n ote is different from the original. Images from the original note were not included. Venipuncture collection performed by clean technique on the left anticubitus. Total of 1 attempts were made. Slight pressure and a bandage/dressing were applied to the site(s). The patient experienced no complications. The following specimens were processed according to instructions and sent to [facility] laboratories per lab order on 02/24/2023 : LT BLUE SST 1 RED LAV PPT DK GREEN (LiHep) DK GREEN (SodH) MO DK BLUE (K2) DK BLUE (S) ACD Blood Culture NIPT/NTD T [facility]
[2024-12-08] MEDS ORDERED: NA CHLORIDE 0.9% 1,000 ML ONE ×2 (13:28→14:58)
[2024-12-08] MEDS ORDERED: ONDANSETRON 4 MG/2 ML VIAL ONE (13:28)
[2024-12-08 13:50] LABS: Absolute Eosinophils 0.1 K/uL (0-0.5); Absolute Lymphocytes (CBC) 0.8 K/uL (0.7-4.9); Absolute Monocytes 0.5 K/uL (0.1-1.3); Absolute Neutrophil 11.6 K/uL (1.8-8.0); Basophils % 0.1 % (0-1.3); Eosinophils % 0.4 % (0-4.4); Hematocrit 47.3 % (36.0-45.0); Hemoglobin 16.3 g/dL (12.0-15.0); Lymphocytes % 6.3 % (15.3-44.8); MCH 30.8 pg (27.0-35.0); MCHC 34.4 g/dL (32.0-36.0); MCV 89.6 fL (80-100); MPV 7.3 fL (7.6-11.3); Monocytes % 4.1 % (3.3-12.3); Neutrophils % 89.1 % (41.7-73.7); Platelets 344 thou/uL (152-406); RBC Red Blood Cell Count 5.29 M/uL (3.86-4.86); Red Cell Distribution Width 13.7 % (12.1-15.2)
[2024-12-08 14:14] LABS: Albumin 4.3 g/dL (3.4-5.0); Anion Gap 10.6 mEq/L (5.0-15.0); Bilirubin Total 0.6 mg/dL (0.2-1.0); Globulin 4.5 g/dL (2.3-3.5); Potassium 3.6 mEq/L (3.5-5.1); Protein, Total 8.8 g/dL (6.4-8.2)
[2024-12-08 15:37] LABS: Blood Morphology Comment NOT SEEN (NOT SEEN); Platelet Estimate ADEQ; White Blood Cell Scan OK (OK)
[2024-12-08] MEDS ORDERED: ACETAMINOPHEN 500 MG TAB ONE (16:01)
[2024-12-08] MEDS ORDERED: KETOROLAC 30 MG/ML INJ ONE (16:18)
[2024-12-08 16:21] LABS: Specific Gravity 1.019 (1.005-1.030); Sqamous Epithelial <5 /HPF (None Seen); Urine Bacteria <20 /HPF (<20); Urine Bilirubin NEGATIVE (Negative); Urine Blood Negative (Negative); Urine Clarity Extremely Turbid (Clear); Urine Color Light-Yellow (Yellow); Urine Culture Reflex Order NOT NEEDED; Urine Glucose NEGATIVE (Negative); Urine Ketones 1+ (Negative); Urine Microscopic Reflex YN ORDER UMIC; Urine Mucus Slight /HPF (None Seen); Urine Nitrite NEGATIVE (Negative); Urine Protein NEGATIVE (Negative); Urine RBC <5 /HPF (None Seen); Urine Urobilinogen Normal (Normal); Urine WBC None Seen /HPF (<5); Urine pH 5.5 (5.0-7.0)
[2024-12-08 16:22] LABS: Specific Gravity 1.019 (1.005-1.030)
[2024-12-08] MEDS ORDERED: PROMETHAZINE INJ 25 MG/ML AMP ONE (16:28)
--- NOTE | 2024-12-08 16:30 | ER ---
Nurse's Notes [facility] Name: Anderson Hernandez Age: 24 yrs Sex: Female : 2000 Arrival Date: 12/08/2024 Time: 12:08 Bed 14 Private MD: Diagnosis: Toxic gastroenteritis and colitis Presentation: 12/08 12:33 Chief complaint: Patient states: vomiting and diarrhea X 7 episodes today and stomach iw and chest pains. Coronavirus screen: At this time, the client does not indicate any symptoms associated with coronavirus-19. Ebola Screen: No symptoms or risks identified at this time. Initial Sepsis Screen: Does the patient meet any 2 criteria? No. Patient's initial sepsis screen is negative. Does the patient have a suspected source of infection? No. Patient's initial sepsis screen is negative. Risk Assessment: Do you want to hurt yourself or someone else? Patient reports no desire to harm self or others. Onset of symptoms was December 08, 2024. 12:33 Method Of Arrival: Wheelchair iw 12:33 Acuity: DOUGLAS 3 iw Historical: - Allergies: 12:36 No Known Allergies; iw - PMHx: 12:34 gallstone; iw - PSHx: 12:36 Cholecystectomy; iw - Immunization history:: Adult Immunizations. - Infectious Disease History:: Denies. - Social history:: Smoking status: Patient denies any tobacco usage or history of. Screenin:45 [facility] ED Fall Risk Assessment (Adult) History of falling in the last 3 months, ld1 including since admission No falls in past 3 months (0 pts) Confusion or Disorientation No (0 pts) Intoxicated or Sedated No (0 pts) Impaired Gait No (0 pts) Mobility Assist Device Used No (0 pt) Altered Elimination No (0 pt) Score/Fall Risk Level 0 - 2 = Low Risk Oriented to surroundings, Hourly rounding (assess needs \T\ fall precautionary measures) done. Abuse screen: Denies threats or abuse. Denies injuries from another. Nutritional screening: No deficits noted. Tuberculosis screening: No symptoms or risk factors identified. Assessment: 13:45 General: Appears in no apparent distress. comfortable, Behavior is calm, cooperative, ld1 appropriate for age. Pain: Denies pain. Neuro: Level of Consciousness is awake, alert, obeys commands, Oriented to person, place, time, situation. Cardiovascular: Capillary refill < 3 seconds Patient's skin is warm and dry. Respiratory: Airway is patent Respiratory effort is even, unlabored. GI: Abdomen is round Bowel sounds present X 4 quads. Abd is soft Abd is non tender Reports nausea, vomiting. : No signs and/or symptoms were reported regarding the genitourinary system. EENT: No signs and/or symptoms were reported regarding the EENT system. Derm: No signs and/or symptoms reported regarding the dermatologic system. Musculoskeletal: No signs and/or symptoms reported regarding the musculoskeletal system. Vital Signs: 12:35 BP 122 / 84; Pulse 95; Resp 16; Temp 97.2; Pulse Ox 100% on R/A; Weight 78.02 kg; iw Height 5 ft. 0 in. ; Pain 8/10; 13:45 BP 121 / 82; Pulse 75; Resp 18; Pulse Ox 100% on R/A; ld1 15:26 BP 109 / 72; Pulse 94; Resp 18; Pulse Ox 100% on R/A; ld1 12:35 Body Mass Index 33.59 (78.02 kg, 152.4 cm) iw 12:35 Pain Scale: Adult iw ED Course: 12:10 Patient arrived in ED. ts1 12:18 Marco A Cleary FNP-C is PHCP. dr5 12:18 Josef Barnett MD is Attending Physician. dr5 12:34 Triage completed. iw 12:34 Arm band placed on. iw 12:44 Emili Weir, ROSE MARY is Primary Nurse. ld1 13:45 Patient has correct armband on for positive identification. Placed in gown. Bed in low ld1 position. Call light in reach. Side rails up X2. Pulse ox on. NIBP on. Door closed. Noise minimized. Warm blanket given. 13:45 No provider procedures requiring assistance completed. Inserted saline lock: 24 gauge ld1 in right hand, using aseptic technique. Blood collected. Flushed with 10 mL NS. 16:40 IV discontinued, intact, bleeding controlled, No redness/swelling at site. ld1 Administered Medications: 13:45 Drug: Ondansetron IVP 4 mg IVP once; over 2 minutes Route: IVP; Site: right hand; ld1 16:12 Follow up: Response: No adverse reaction iw 13:45 Drug: NS 0.9% IV 1000 ml IV at 1 bolus Per protocol; to be given as a bolus over 60 ld1 minutes Route: IV; Rate: 1 bolus; Site: right hand; 15:06 Drug: NS 0.9% IV 1000 ml IV at 1000 ml once; to be given as a bolus over 60 minutes ld1 Route: IV; Rate: 1000 ml; Site: right hand; 16:12 Drug: Acetaminophen PO 1000 mg PO once Route: PO; iw 16:31 Drug: Ketorolac IVP 15 mg IVP once Route: IVP; Site: right hand; ld1 16:31 Drug: Phenergan 25 mg IV at per protocol Per protocol Route: IV; Rate: per protocol; ld1 Site: right hand; Medication: 13:45 VIS not applicable for this client. ld1 Outcome: 16:30 Discharge ordered by MD. dr5 16:40 Discharged to home via wheelchair, with family, ld1 16:40 Condition: stable 16:40 Discharge instructions given to patient, family, Instructed on discharge instructions, follow up and referral plans. medication usage, Demonstrated understanding of instructions, follow-up care, medications, Prescriptions given X 2, 16:40 Patient left the ED. ld1 Signatures: Tania Foley RN ROSE MARY Emili Weir RN RN ld1 Adwoa Albrecht PAS PAS ts1 Marco A Cleary, COGNOS-C COGNOS-Cdr5 Corrections: (The following items were deleted from the chart) 12:36 12:35 BP 122 / 84; Resp 16bpm; Temp 97.2F; 78.02 kg; Height 5 ft. 0 in.; BMI: 33.5; iw Pain 02/24, Adult; iw
--- NOTE | 2024-12-08 16:30 | EDPHYS ---
Physician Documentation [facility] Name: Anderson Hernandez Age: 24 yrs Sex: Female : 2000 Arrival Date: 12/08/2024 Time: 12:08 Bed 14 Private MD: ED Physician Josef Barnett HPI: 12/08 18:06 This 24 yrs old Female presents to ER via Wheelchair with complaints of dr5 Abdominal Pain, Chest Pain, Nausea/Vomiting/Diarrhea. 18:06 The patient presents with abdominal pain in the epigastric area. Onset: The dr5 symptoms/episode began/occurred 2 day(s) ago. Patient is a 24-year-old female with history of gallstones and cholecystectomy coming in with nausea and vomiting and diarrhea for the past 2 days. Patient states that her son everyone in the family also has the same symptoms. Patient denies fever. Historical: - Allergies: 12:36 No Known Allergies; iw - PMHx: 12:34 gallstone; iw - PSHx: 12:36 Cholecystectomy; iw - Immunization history:: Adult Immunizations. - Infectious Disease History:: Denies. - Social history:: Smoking status: Patient denies any tobacco usage or history of. ROS: 18:06 Constitutional: as per hpi dr5 Exam: 18:06 Constitutional: This is a well developed, well nourished patient who is awake, alert, dr5 and in no acute distress. Head/Face: Normocephalic, atraumatic. Eyes: Pupils equal round and reactive to light, extra-ocular motions intact. Lids and lashes normal. Conjunctiva and sclera are non-icteric and not injected. Cornea within normal limits. Periorbital areas with no swelling, redness, or edema. Neck: Trachea midline, no thyromegaly or masses palpated, and no cervical lymphadenopathy. Supple, full range of motion without nuchal rigidity, or vertebral point tenderness. No Meningismus. Chest/axilla: Normal chest wall appearance and motion. Nontender with no deformity. No lesions are appreciated. Cardiovascular: Regular rate and rhythm with a normal S1 and S2. Normal PMI, no JVD. No pulse deficits. Respiratory: Lungs have equal breath sounds bilaterally, clear to auscultation. No rales, rhonchi or wheezes noted. No increased work of breathing, no retractions or nasal flaring. Abdomen/GI: Soft, non-tender, non-distended Back: No spinal tenderness. No costovertebral tenderness. Full range of motion. Skin: Warm, dry with normal turgor. Normal color with no rashes, no lesions, and no evidence of cellulitis. Neuro: Awake and alert, GCS 15, oriented to person, place, time, and situation. Cranial nerves II-XII grossly intact. Motor strength 5/5 in all extremities. Sensory grossly intact. Cerebellar exam normal. Normal gait. Vital Signs: 12:35 BP 122 / 84; Pulse 95; Resp 16; Temp 97.2; Pulse Ox 100% on R/A; Weight 78.02 kg; iw Height 5 ft. 0 in. ; Pain 8/10; 13:45 BP 121 / 82; Pulse 75; Resp 18; Pulse Ox 100% on R/A; ld1 15:26 BP 109 / 72; Pulse 94; Resp 18; Pulse Ox 100% on R/A; ld1 12:35 Body Mass Index 33.59 (78.02 kg, 152.4 cm) iw 12:35 Pain Scale: Adult iw MDM: 12:21 Medical Screening Exam initiated dr5 18:06 Differential diagnosis: Electrolyte abnormality, gastroenteritis, . Data dr5 reviewed: vital signs, nurses notes, lab test result(s). I considered the following discharge prescriptions or medication management in the emergency department Medications were administered in the Emergency Department. See MAR. Care significantly affected by the following chronic conditions: Gallstones. Care significantly affected by the following Social Determinants of Health: Poor access to healthcare and/or lack of insurance, Poor access to transportation, Problems related to employment. Counseling: I had a detailed discussion with the patient and/or guardian regarding the historical points, exam findings, and any diagnostic results supporting the discharge/admit diagnosis, the presence of at least one elevated blood pressure reading (>120/80) during this emergency department visit, lab results, the need for outpatient follow up, for definitive care, a family practitioner, to return to the emergency department if symptoms worsen or persist or if there are any questions or concerns that arise at home. Medication response: Response to treatment: the patient's symptoms have resolved after treatment, the patient's condition has returned to base line. ED course: Discussed patient labs with patient and she is reports she so much better. Explained gastroenteritis and that she needs to increase hydration for the next couple days. Follow-up with primary care doctor. All labs were printed and given to patient. Strict ER precautions given. 12/08 12:39 Order name: CBC with Diff; Complete Time: 15:39 dr5 12/08 12:39 Order name: CMP; Complete Time: 14:20 dr5 12/08 12:39 Order name: Lipase; Complete Time: 14:[address] [facility] 12/08 12:39 Order name: Test, Urine; Complete Time: 16:23 dr5 12/08 12:39 Order name: UA Rfx Neno Cult if indicated; Complete Time: 16:23 dr5 12/08 15:37 Order name: CBC Smear Scan; Complete Time: 15:39 EDMS 12/08 12:39 Order name: IV Saline Lock; Complete Time: 13:[address] [facility] 12/08 12:39 Order name: Labs collected and sent; Complete Time: 13:45 dr5 Administered Medications: 13:45 Drug: Ondansetron IVP 4 mg IVP once; over 2 minutes Route: IVP; Site: right hand; ld1 16:12 Follow up: Response: No adverse reaction iw 13:45 Drug: NS 0.9% IV 1000 ml IV at 1 bolus Per protocol; to be given as a bolus over 60 ld1 minutes Route: IV; Rate: 1 bolus; Site: right hand; 15:06 Drug: NS 0.9% IV 1000 ml IV at 1000 ml once; to be given as a bolus over 60 minutes ld1 Route: IV; Rate: 1000 ml; Site: right hand; 16:12 Drug: Acetaminophen PO 1000 mg PO once Route: PO; iw 16:31 Drug: Ketorolac IVP 15 mg IVP once Route: IVP; Site: right hand; ld1 16:31 Drug: Phenergan 25 mg IV at per protocol Per protocol Route: IV; Rate: per protocol; ld1 Site: right hand; Disposition Summary: 12/08/24 16:30 Discharge Ordered Notes: Location: Home dr5 Condition: Stable dr5 Diagnosis - Toxic gastroenteritis and colitis dr5 Followup: dr5 - With: Emergency Department - When: As needed - Reason: Worsening of condition Followup: dr5 - With: Private Physician - When: 1 - 2 days - Reason: Recheck today's complaints, Continuance of care, Re-evaluation by your physician Discharge Instructions: - Discharge Summary Sheet dr5 - Urinary Tract Infection, Adult dr5 - Viral Gastroenteritis, Adult, [id number] dr5 Forms: - Medication Reconciliation Form dr5 - Antibiotic Education dr5 - Patient Portal Instructions dr5 - Leadership Thank You Letter dr5 Prescriptions: - Cephalexin 500 mg Oral Capsule - take 1 capsule ORAL route every 12 hours for 10 days; 20 capsule; Refills: 0, dr5 Product Selection Permitted - Zofran 4 mg Oral Tablet - take 1 tablet ORAL route every 12 hours As needed; 20 tablet; Refills: 0, dr5 Product Selection Permitted Addendum: 12/10/2024 12:35 Co-signature as Attending Physician, Josef Barnett MD I agree with the assessment and c vega plan of care. Signatures: Dispatcher [employer] EDJosef Ceballos MD MD cha Williams, Irene RN RN iw mEili Weir RN RN ld1 Marco A Cleary, FIRE EXTINGUISHER TESTER-C FIRE EXTINGUISHER TESTER-Cdr5 Corrections: (The following items were deleted from the chart) 12/08 12:40 12:40 CBC+H.LAB.BRZ ordered. EDMS EDMS 12:40 12:40 COMPREHENSIVE METABOLIC PANEL+C.LAB.BRZ ordered. EDMS EDMS 12:40 12:40 LIPASE+C.LAB.BRZ ordered. EDMS EDMS 12:40 12:40 Test, Urine+UC.LAB.BRZ ordered. EDMS EDMS 12:40 12:40 UA Rfx Neno Cult if indicated+U.LAB.BRZ ordered. EDMS EDMS
[2024-12-08 16:45] VITALS: TEMP 97.2; O2SAT 100
[2024-12-08 16:48] VITALS: BP 109/72
== END 2024-12-08 16:40 | disposition home or self-care (01) ==
LOC: ER 12:08
DX: K52.1 Toxic gastroenteritis and colitis (principal)
CPT/HCPCS: 85025; 81001; 36415; 81025; 83690; 80053; 96375; 96374; 99284; J2550; J2405; J7030 ×2